=== PATIENT | female | born 1960 | race Two or more races ===

== ENCOUNTER 2017-06-17 00:58 | Emergency (ER) | payer MEDICAID ==
[~2017-06-17] VITALS: Ht 157.5 cm; Wt 65.8 kg
[2017-06-17 01:21] VITALS: BP 134/77
[2017-06-17] MEDS ORDERED: BACLOFEN 10 MG TAB PO ONE (03:00)
[2017-06-17] MEDS ORDERED: IBUPROFEN 600 MG TAB PO ONE (03:00)
== END 2017-06-17 03:15 | disposition home or self-care (01) ==
LOC: ER 01:03
DX: S00.83XA Contusion of other part of head, initial encounter (principal); W01.0XXA Fall on same level from slipping, tripping and stumbling without subsequent striking against object, initial encounter; Y93.89 Activity, other specified; Y92.89 Other specified places as the place of occurrence of the external cause; Y99.8 Other external cause status; Z88.6 Allergy status to analgesic agent
CPT/HCPCS: 70450

== ENCOUNTER 2021-04-26 21:37 | Inpatient (IN) | payer MEDICAID ==
[~2021-04-26] VITALS: Ht 157.5 cm; Wt 76.0 kg
[2021-04-27] MEDS ORDERED: ACETAMINOPHEN 325 MG TAB PO ONE
[2021-04-27 00:04] LABS: Basophils # (auto) 0 10 ^3/uL (0-0.2); Basophils % (auto) 0.5 % (0.0-2.0); Eosinophils # (auto) 0 10 ^3/uL (0-0.8); Eosinophils % (auto) 0.4 % (0.0-7.0); Hematocrit 30.2 % (36.0-46.0); Hemoglobin 9.5 g/dL (12.2-16.2); Lymphocytes # (auto) 1.3 10 ^3/uL (0.4-5.4); Mean Corpuscular Hemoglobin 29.7 pg (28.0-32.0); Mean Corpuscular Hgb Conc. 31.6 g/dL (32.0-36.0); Monocytes # (auto) 0.4 10 ^3/uL (0-1.3); Monocytes % (auto) 5.4 % (0.0-12.0); Neutrophils # (auto) 6.4 10 ^3/uL (1.6-8.6); Neutrophils % (auto) 77.7 % (37.0-80.0); Nucleated Red Blood Cells % 0.1 %; Red Blood Cells 3.21 10^6/uL (4.0-5.20); White Blood Cell 8.3 10^3/uL (4.4-10.8)
[2021-04-27 00:25] LABS: Albumin 2.2 g/dL (3.4-5.0); Anion Gap 7 (5-15); Blood Urea Nitrogen 25 mg/dL (7-18); Calcium 8.5 mg/dL (8.5-10.1); Carbon Dioxide 17 mmol/L (21-32); Chloride 117 mmol/L (98-107); GFR African American 59 mL/min; GFR Non-African American 49 mL/min; Glucose 100 mg/dL (74-106); Lipase 141 U/L (73-393); Potassium 4.7 mmol/L (3.5-5.1); Sodium 141 mmol/L (136-145)
[2021-04-27] MEDS ORDERED: FUROSEMIDE 40 MG/4 ML VIAL IV ONE (00:30)
[2021-04-27 00:31] LABS: Alanine Aminotransferase 19 U/L (13-56); Alkaline Phosphatase 139 U/L (45-117); Aspartate Aminotransferase 28 U/L (15-37); Bilirubin, Total 0.2 mg/dL (0.2-1.0); Total Protein 9.2 g/dL (6.4-8.2)
[2021-04-27] MEDS ORDERED: MORPHINE SULFATE INJECTION 2 MG/ML SYRG IV PRN ×2 (02:30)
[2021-04-27] MEDS ORDERED: hydrALAZINE HCL 20 MG/ML VL IV PRN (02:30)
[2021-04-27] MEDS ORDERED: NITROGLYCERIN 0.4 MG SL TAB SL PRN (02:30)
[2021-04-27] MEDS ORDERED: HYDROcodone-ACET 5/325MG TAB PO PRN (02:30)
[2021-04-27] MEDS ORDERED: ONDANSETRON HCL 4 MG/2 ML VIAL IV PRN (02:30)
[2021-04-27 03:49] LABS: Urine Bacteria NONE SEEN /hpf (None Seen); Urine Blood Negative /uL (Negative); Urine Hyaline Cast FEW /lpf (0 - 2); Urine Mucus FEW (None Seen); Urine Specific Gravity 1.013 (1.001-1.035); Urine WBC 32 /hpf (0 - 5)
[2021-04-27 05:12] LABS: Basophils # (auto) 0 10 ^3/uL (0-0.2); Eosinophils # (auto) 0 10 ^3/uL (0-0.8); Lymphocytes # (auto) 1.1 10 ^3/uL (0.4-5.4); Monocytes # (auto) 0.4 10 ^3/uL (0-1.3); Neutrophils % (auto) 72.8 % (37.0-80.0)
[2021-04-27 05:14] LABS: Basophils % (auto) 0.5 % (0.0-2.0); Eosinophils % (auto) 0.4 % (0.0-7.0); Hemoglobin 8.2 g/dL (12.2-16.2); Lymphocytes % (auto) 19.2 % (10.0-50.0); Mean Corpuscular Hemoglobin 30.1 pg (28.0-32.0); Mean Corpuscular Hgb Conc. 32.9 g/dL (32.0-36.0); Mean Corpuscular Volume 91.6 fL (80.0-100.0); Monocytes % (auto) 7.1 % (0.0-12.0); Neutrophils # (auto) 4.3 10 ^3/uL (1.6-8.6); Red Blood Cells 2.73 10^6/uL (4.0-5.20); Red Cell Distribution Width 17.3 % (11.8-14.3)
[2021-04-27 05:18] LABS: Partial Thromboplastin Time 25.2 sec (23.6-33.0)
[2021-04-27 05:23] LABS: BUN/Creatinine Ratio 20.8; Calcium 8.3 mg/dL (8.5-10.1); Potassium 4.2 mmol/L (3.5-5.1)
[2021-04-27] MEDS ORDERED: IOHEXOL 350 MG/ML 100ML IJ ONE (08:04)
[2021-04-27 09:00] VITALS: BP 182/75
[2021-04-27 09:13] VITALS: BP 182/75
[2021-04-27] MEDS ORDERED: LEVO137T3 PO (09:28)
[2021-04-27] MEDS ORDERED: HYDR50TA15 PO (09:28)
[2021-04-27] MEDS ORDERED: METOPROLOL TARTRATE 1MG/1ML-5ML VIAL IV PRN (09:45)
[2021-04-27] MEDS ORDERED: FUROSEMIDE 40 MG/4 ML VIAL IV SCH (10:00)
[2021-04-27] MEDS ORDERED: POTASSIUM CHL 10 Meq TABLET PO SCH (10:00)
[2021-04-27] MEDS: ENOXAPARIN SOD 40 MG/0.4 ML SYRINGE SC SCH (10:12)
[2021-04-27] MEDS: ACETAMINOPHEN 325 MG TAB PO PRN ×2 (10:22→20:01)
[2021-04-27 10:28] VITALS: BP 175/87
[2021-04-27] MEDS: CARVEDILOL 3.125 MG TAB PO SCH ×2 (12:44→21:47)
[2021-04-27 13:00] VITALS: BP 142/67
[2021-04-27] MEDS: hydrALAZINE HCL 25 MG TAB PO SCH ×2 (13:34→21:43)
[2021-04-27 17:00] VITALS: BP 139/67
[2021-04-27] MEDS: FUROSEMIDE 40 MG/4 ML VIAL IV SCH (21:59)
[2021-04-27 22:08] VITALS: BP 162/77
[2021-04-28 05:11] VITALS: BP 145/78
[2021-04-28] MEDS: FUROSEMIDE 40 MG/4 ML VIAL IV SCH ×2 (05:53→18:00)
[2021-04-28] MEDS: ACETAMINOPHEN 325 MG TAB PO PRN (05:54)
[2021-04-28] MEDS ORDERED: LEVOTHYROXINE SODIUM 112 MCG TAB PO SCH (07:00)
[2021-04-28] MEDS ORDERED: LEVOTHYROXINE SODIUM 25 MCG TAB PO SCH (07:00)
[2021-04-28 07:49] LABS: Calcium 8.2 mg/dL (8.5-10.1); Potassium 4.6 mmol/L (3.5-5.1)
[2021-04-28 07:51] LABS: BUN/Creatinine Ratio 22.4
[2021-04-28] MEDS: ENOXAPARIN SOD 40 MG/0.4 ML SYRINGE SC SCH (08:33)
[2021-04-28] MEDS: CARVEDILOL 3.125 MG TAB PO SCH (08:41)
[2021-04-28] MEDS: hydrALAZINE HCL 25 MG TAB PO SCH (08:42)
[2021-04-28 09:00] VITALS: BP 159/73
[2021-04-28] MEDS ORDERED: LOSARTAN POTASSIUM 25 MG TAB PO SCH (10:00)
[2021-04-28] MEDS ORDERED: POTASSIUM CHL 10 Meq TABLET PO SCH (10:00)
[2021-04-28] MEDS ORDERED: HYDR50TA15 PO (12:39)
[2021-04-28] MEDS ORDERED: FURO40TA4 PO (12:39)
[2021-04-28] MEDS ORDERED: CAR3125T PO (12:39)
[2021-04-28] MEDS ORDERED: SPIR25TA PO (12:39)
[2021-04-28 13:00] VITALS: BP 139/98
[2021-04-28 14:50] VITALS: BP 159/73
[2021-04-28 17:00] VITALS: BP 144/74
== END 2021-04-28 20:02 | disposition home or self-care (01) | DRG 194 ==
LOC: ER 21:37 → EDBD 21:37 → TELE 04-27 02:29 → TELE-WESTW 04-27 08:10
PROVIDERS: ADMIT Internal Medicine; ATTEND Internal Medicine
DX: I13.0 Hypertensive heart and chronic kidney disease with heart failure and stage 1 through stage 4 chronic kidney disease, or unspecified chronic kidney disease (principal); I27.20 Pulmonary hypertension, unspecified; I50.9 Heart failure, unspecified; N18.2 Chronic kidney disease, stage 2 (mild); Z20.822 Contact with and (suspected) exposure to COVID-19; Z80.3 Family history of malignant neoplasm of breast; Z82.49 Family history of ischemic heart disease and other diseases of the circulatory system; Z91.14 Patient's other noncompliance with medication regimen; Z88.5 Allergy status to narcotic agent; I50.33 Acute on chronic diastolic (congestive) heart failure
CPT/HCPCS: 36415; 71045; 71275; 80048; 80053; 81001; 83605; 83690; 83880; 84484; 85025; 85379; 85610; 85730; 87426; 93005; 93306; 96374; 96375; G0378

== ENCOUNTER 2021-11-09 19:28 | Inpatient (IN) | payer MEDICAID ==
[~2021-11-09] VITALS: Ht 157.5 cm; Wt 57.9 kg
[~2021-11-09 19:28] MED LIST: CAR3125T PO; FURO40TA4 PO; HYDR50TA15 PO; LEVO137T3 PO; SPIR25TA PO
[2021-11-09] MEDS ORDERED: FUROSEMIDE 100 MG/10ML VIAL IV ONE (20:00)
[2021-11-09] MEDS ORDERED: LABETALOL HCL 5 MG/ML 4ML SYRINGE IV ONE (20:00)
[2021-11-09 20:06] LABS: Basophils # (auto) 0.2 10 ^3/uL (0-0.2); Eosinophils # (auto) 0 10 ^3/uL (0-0.8); Hematocrit 18.8 % (36.0-46.0); Monocytes # (auto) 0.2 10 ^3/uL (0-1.3); Neutrophils # (auto) 3.2 10 ^3/uL (1.6-8.6)
[2021-11-09 20:08] LABS: Lymphocytes # (auto) 0.9 10 ^3/uL (0.4-5.4); Lymphocytes % (auto) 19.6 % (10.0-50.0); Mean Corpuscular Hemoglobin 30.3 pg (28.0-32.0); Mean Corpuscular Hgb Conc. 32.5 g/dL (32.0-36.0); Mean Corpuscular Volume 93.2 fL (80.0-100.0); Monocytes % (auto) 3.6 % (0.0-12.0); Neutrophils % (auto) 71.8 % (37.0-80.0); Red Blood Cells 2.02 10^6/uL (4.0-5.20); Red Cell Distribution Width 17.3 % (11.8-14.3); White Blood Cell 4.4 10^3/uL (4.4-10.8)
[2021-11-09 20:16] LABS: Hemoglobin 6.1 g/dL (12.2-16.2)
[2021-11-09 20:24] LABS: Albumin 1.9 g/dL (3.4-5.0); BUN/Creatinine Ratio 20.8; Calcium 7.9 mg/dL (8.5-10.1); Magnesium 2.4 mg/dL (1.6-2.6); Potassium 5.5 mmol/L (3.5-5.1)
[2021-11-09 20:29] LABS: Bilirubin, Total 0.2 mg/dL (0.2-1.0); Total Protein 7.3 g/dL (6.4-8.2)
[2021-11-09 20:31] LABS: Partial Thromboplastin Time 27.1 sec (23.6-33.0)
[2021-11-09 21:34] LABS: Urine Bacteria FEW /hpf (None Seen); Urine Blood Negative /uL (Negative); Urine Hyaline Cast FEW /lpf (0 - 2); Urine Specific Gravity 1.012 (1.001-1.035); Urine WBC 4 /hpf (0 - 5)
[2021-11-09] MEDS ORDERED: ONDANSETRON HCL 4 MG/2 ML VIAL IV PRN (21:45)
[2021-11-09] MEDS ORDERED: DOCUSATE SOD 100 MG CAP PO PRN (21:45)
[2021-11-09] MEDS ORDERED: NITROGLYCERIN 0.4 MG SL TAB SL PRN (21:45)
[2021-11-09 22:58] VITALS: BP 182/82
[2021-11-09 23:13] VITALS: BP 187/85
[2021-11-10] VITALS (15 sets, daily range): BP systolic 134–196; BP diastolic 70–98
[2021-11-10] MEDS: LABETALOL HCL 5 MG/ML 4ML SYRINGE IV PRN ×3 (01:37→16:05)
[2021-11-10] MEDS ORDERED: hydrALAZINE HCL 20 MG/ML VL IV ONE (05:30)
[2021-11-10] MEDS: ACETAMINOPHEN 325 MG TAB PO PRN (05:58)
[2021-11-10] MEDS: FUROSEMIDE 20 MG/2 ML VIAL IV SCH ×2 (05:59→18:44)
[2021-11-10 07:37] LABS: Basophils # (auto) 0 10 ^3/uL (0-0.2); Eosinophils # (auto) 0 10 ^3/uL (0-0.8); Lymphocytes # (auto) 0.8 10 ^3/uL (0.4-5.4); Monocytes # (auto) 0.2 10 ^3/uL (0-1.3); White Blood Cell 4.9 10^3/uL (4.4-10.8)
[2021-11-10 07:41] LABS: Basophils % (auto) 0.8 % (0.0-2.0); Hematocrit 22.5 % (36.0-46.0); Hemoglobin 7.5 g/dL (12.2-16.2); Mean Corpuscular Hemoglobin 30.3 pg (28.0-32.0); Mean Corpuscular Hgb Conc. 33.4 g/dL (32.0-36.0); Mean Corpuscular Volume 90.6 fL (80.0-100.0); Monocytes % (auto) 4.8 % (0.0-12.0); Neutrophils # (auto) 3.8 10 ^3/uL (1.6-8.6); Neutrophils % (auto) 77.4 % (37.0-80.0); Nucleated Red Blood Cells % 0.2 %; Red Blood Cells 2.48 10^6/uL (4.0-5.20); Red Cell Distribution Width 16.9 % (11.8-14.3)
[2021-11-10 07:56] LABS: BUN/Creatinine Ratio 22.1; Potassium 5.5 mmol/L (3.5-5.1)
[2021-11-10 07:57] LABS: % Iron Saturation 20.5 % (15-50)
[2021-11-10] MEDS ORDERED: PANTOPRAZOLE 40 MG/10 ML VIAL INJ IV SCH (10:00)
[2021-11-10 19:35] LABS: Basophils # (auto) 0 10 ^3/uL (0-0.2); Basophils % (auto) 0.4 % (0.0-2.0); Eosinophils # (auto) 0 10 ^3/uL (0-0.8); Eosinophils % (auto) 0.8 % (0.0-7.0); Hematocrit 26.3 % (36.0-46.0); Hemoglobin 8.9 g/dL (12.2-16.2); Lymphocytes # (auto) 0.9 10 ^3/uL (0.4-5.4); Lymphocytes % (auto) 17.3 % (10.0-50.0); Mean Corpuscular Hemoglobin 30.9 pg (28.0-32.0); Mean Corpuscular Volume 90.9 fL (80.0-100.0); Monocytes # (auto) 0.3 10 ^3/uL (0-1.3); Monocytes % (auto) 5.6 % (0.0-12.0); Neutrophils # (auto) 4.1 10 ^3/uL (1.6-8.6); Neutrophils % (auto) 75.9 % (37.0-80.0); Nucleated Red Blood Cells % 0.2 %; Red Blood Cells 2.89 10^6/uL (4.0-5.20); Red Cell Distribution Width 16.5 % (11.8-14.3); White Blood Cell 5.4 10^3/uL (4.4-10.8)
[2021-11-10 19:36] LABS: % Iron Saturation 24.2 % (15-50)
[2021-11-10] MEDS: PANTOPRAZOLE 40 MG/10 ML VIAL INJ IV SCH (21:47)
[2021-11-10] MEDS: CARVEDILOL 3.125 MG TAB PO SCH (22:00)
[2021-11-11] MEDS: hydrALAZINE HCL 20 MG/ML VL IV PRN ×2 (00:14→15:20)
[2021-11-11] MEDS: ACETAMINOPHEN 325 MG TAB PO PRN ×2 (00:33→11:36)
[2021-11-11 05:00] VITALS: BP 142/64
[2021-11-11] MEDS: FUROSEMIDE 20 MG/2 ML VIAL IV SCH ×2 (05:33→19:58)
[2021-11-11 06:02] LABS: Basophils # (auto) 0 10 ^3/uL (0-0.2); Basophils % (auto) 0.6 % (0.0-2.0); Eosinophils # (auto) 0.1 10 ^3/uL (0-0.8); Eosinophils % (auto) 1.8 % (0.0-7.0); Hematocrit 25.3 % (36.0-46.0); Hemoglobin 8.5 g/dL (12.2-16.2); Lymphocytes % (auto) 23.4 % (10.0-50.0); Mean Corpuscular Hgb Conc. 33.8 g/dL (32.0-36.0); Monocytes # (auto) 0.2 10 ^3/uL (0-1.3); Monocytes % (auto) 5.8 % (0.0-12.0); Neutrophils # (auto) 2.9 10 ^3/uL (1.6-8.6); Neutrophils % (auto) 68.4 % (37.0-80.0); Nucleated Red Blood Cells % 0.1 %; Red Blood Cells 2.75 10^6/uL (4.0-5.20); Red Cell Distribution Width 16.5 % (11.8-14.3); White Blood Cell 4.2 10^3/uL (4.4-10.8)
[2021-11-11 06:26] LABS: Chloride 116 mmol/L (98-107); Potassium 5.3 mmol/L (3.5-5.1); Sodium 143 mmol/L (136-145)
[2021-11-11 06:39] LABS: Alanine Aminotransferase 10 U/L (13-56); Albumin 1.5 g/dL (3.4-5.0); Alkaline Phosphatase 64 U/L (45-117); Anion Gap 5 (5-15); Aspartate Aminotransferase 17 U/L (15-37); BUN/Creatinine Ratio 20.6; Bilirubin, Direct < 0.1 mg/dL (0-0.2); Bilirubin, Total 0.2 mg/dL (0.2-1.0); Blood Urea Nitrogen 59 mg/dL (7-18); CRP High Sensitivity 0.87 mg/dL (< 0.3); Calcium 7.5 mg/dL (8.5-10.1); Carbon Dioxide 22 mmol/L (21-32); GFR African American 22 mL/min; GFR Non-African American 18 mL/min; Glucose 76 mg/dL (74-106); Phosphorus 5.8 mg/dL (2.5-4.90); Pre Albumin 17.2 mg/dL (20.0-40.0); Total Protein 6.2 g/dL (6.4-8.2)
[2021-11-11 07:16] LABS: Urine Bacteria FEW /hpf (None Seen); Urine Blood TRACE /uL (Negative); Urine Hyaline Cast FEW /lpf (0 - 2); Urine Specific Gravity 1.015 (1.001-1.035); Urine WBC 16 /hpf (0 - 5)
[2021-11-11 07:19] LABS: Protein, Urine 487.8 mg/dL (0.0-11.9)
[2021-11-11 08:00] VITALS: BP 148/77
[2021-11-11 09:21] VITALS: BP 175/67
[2021-11-11] MEDS: PANTOPRAZOLE 40 MG/10 ML VIAL INJ IV SCH ×2 (11:12→22:18)
[2021-11-11] MEDS: CARVEDILOL 3.125 MG TAB PO SCH ×2 (11:12→22:21)
[2021-11-11] MEDS: SODIUM FERR GLUC 62.5MG/5ML 125 MG in SODIUM CHL 0.9% 100 ML IV SCH (12:06)
[2021-11-11 12:34] VITALS: BP 175/73
[2021-11-11 16:52] VITALS: BP 167/75
[2021-11-11] MEDS ORDERED: hydrALAZINE HCL 20 MG/ML VL IV PRN (20:45)
[2021-11-11 22:00] VITALS: BP 202/89
[2021-11-11] MEDS: amLODIPine BESYLATE 5 MG TAB PO SCH (22:20)
[2021-11-12 05:00] VITALS: BP 161/71
[2021-11-12] MEDS: hydrALAZINE HCL 20 MG/ML VL IV PRN (05:40)
[2021-11-12] MEDS: FUROSEMIDE 20 MG/2 ML VIAL IV SCH ×2 (05:40→17:45)
[2021-11-12 06:17] LABS: Albumin 1.5 g/dL (3.4-5.0)
[2021-11-12 06:22] LABS: Alanine Aminotransferase 11 U/L (13-56); Alkaline Phosphatase 65 U/L (45-117); Aspartate Aminotransferase 20 U/L (15-37); Bilirubin, Direct < 0.1 mg/dL (0-0.2); Bilirubin, Total 0.3 mg/dL (0.2-1.0); Phosphorus 4.9 mg/dL (2.5-4.90); Total Protein 6.4 g/dL (6.4-8.2)
[2021-11-12 09:00] VITALS: BP 159/74
[2021-11-12] MEDS: PANTOPRAZOLE 40 MG/10 ML VIAL INJ IV SCH ×2 (11:56→22:13)
[2021-11-12] MEDS: CARVEDILOL 3.125 MG TAB PO SCH ×2 (11:56→22:13)
[2021-11-12] MEDS: amLODIPine BESYLATE 5 MG TAB PO SCH ×2 (11:57→22:14)
[2021-11-12] MEDS: SODIUM FERR GLUC 62.5MG/5ML 125 MG in SODIUM CHL 0.9% 100 ML IV SCH (12:03)
[2021-11-12 12:58] VITALS: BP 144/63
[2021-11-12 13:31] LABS: Folate (Folic Acid) 2.83 ng/mL (5.38-24)
[2021-11-12 13:40] LABS: Free T4 (Free Thyroxine) 1.11 ng/dL (0.89-1.76)
[2021-11-12] MEDS ORDERED: hydrALAZINE HCL 25 MG TAB PO PRN (14:00)
[2021-11-12] MEDS ORDERED: ERGOCALCIFEROL 50,000 UNIT(1.25MG) CAP PO SCH (14:15)
[2021-11-12 15:42] LABS: Basophils # (auto) 0 10 ^3/uL (0-0.2); Basophils % (auto) 0.6 % (0.0-2.0); Eosinophils # (auto) 0.1 10 ^3/uL (0-0.8); Eosinophils % (auto) 2.4 % (0.0-7.0); Hematocrit 29.7 % (36.0-46.0); Hemoglobin 9.7 g/dL (12.2-16.2); Lymphocytes # (auto) 0.8 10 ^3/uL (0.4-5.4); Lymphocytes % (auto) 16.2 % (10.0-50.0); Mean Corpuscular Hemoglobin 30.3 pg (28.0-32.0); Mean Corpuscular Hgb Conc. 32.6 g/dL (32.0-36.0); Monocytes # (auto) 0.3 10 ^3/uL (0-1.3); Monocytes % (auto) 7.1 % (0.0-12.0); Neutrophils # (auto) 3.4 10 ^3/uL (1.6-8.6); Neutrophils % (auto) 73.7 % (37.0-80.0); Nucleated Red Blood Cells % 0.2 %; Red Blood Cells 3.19 10^6/uL (4.0-5.20); Red Cell Distribution Width 16.4 % (11.8-14.3); White Blood Cell 4.7 10^3/uL (4.4-10.8)
[2021-11-12 15:47] LABS: Partial Thromboplastin Time 31.5 sec (23.6-33.0)
[2021-11-12 16:47] VITALS: BP 175/79
[2021-11-12] MEDS ORDERED: hydrALAZINE HCL 25 MG TAB PO SCH (17:15)
[2021-11-12 21:55] VITALS: BP 165/76
[2021-11-13] VITALS (35 sets, daily range): BP systolic 128–185; BP diastolic 65–89
[2021-11-13] MEDS: hydrALAZINE HCL 25 MG TAB PO SCH ×5 (00:05→23:52)
[2021-11-13] MEDS: FUROSEMIDE 20 MG/2 ML VIAL IV SCH ×2 (06:10→18:39)
[2021-11-13] MEDS: hydrALAZINE HCL 20 MG/ML VL IV PRN (06:10)
[2021-11-13 06:23] LABS: Calcium 7.5 mg/dL (8.5-10.1); Potassium 5.2 mmol/L (3.5-5.1)
[2021-11-13 06:24] LABS: INR 1.02 (0.9-1.15); Partial Thromboplastin Time 29.6 sec (23.6-33.0)
[2021-11-13 06:34] LABS: BUN/Creatinine Ratio 19.9
[2021-11-13 08:06] LABS: Immunoglobulin G, Serum 2420 mg/dL (586-1602)
[2021-11-13] MEDS: PANTOPRAZOLE 40 MG/10 ML VIAL INJ IV SCH ×2 (10:00→21:46)
[2021-11-13] MEDS: CARVEDILOL 3.125 MG TAB PO SCH ×2 (10:03→21:46)
[2021-11-13] MEDS: amLODIPine BESYLATE 5 MG TAB PO SCH ×2 (10:04→21:45)
[2021-11-13] MEDS ORDERED: GELATIN 1 SPONGE SIZE 100 TOP ONE (10:33)
[2021-11-13] MEDS ORDERED: fentaNYL CITRATE 100 MCG/2 ML VL ONE (10:45)
[2021-11-13] MEDS ORDERED: MIDAZOLAM HCL 2MG/2ML 2ml VIAL (1mg/ml) ONE (10:45)
[2021-11-13] MEDS ORDERED: hydrALAZINE HCL 20 MG/ML VL IV ONE (11:11)
[2021-11-13] MEDS ORDERED: NALOXONE HCL 0.4 MG/ML VIAL ONE (11:36)
[2021-11-13] MEDS ORDERED: FLUMAZENIL 0.1 MG/ML INJ 10ML MDV IV ONE (13:06)
[2021-11-13] MEDS: SODIUM ZIRCONIUM CYCL 10 GM PAK PO SCH ×2 (15:59→21:45)
[2021-11-13] MEDS: SODIUM FERR GLUC 62.5MG/5ML 125 MG in SODIUM CHL 0.9% 100 ML IV SCH (16:00)
[2021-11-13] MEDS: ACETAMINOPHEN 325 MG TAB PO PRN (20:00)
[2021-11-14] VITALS (17 sets, daily range): BP systolic 120–173; BP diastolic 64–89
[2021-11-14 05:57] LABS: BUN/Creatinine Ratio 20.7; Calcium 7.8 mg/dL (8.5-10.1); Potassium 4.9 mmol/L (3.5-5.1)
[2021-11-14] MEDS: FUROSEMIDE 20 MG/2 ML VIAL IV SCH ×2 (06:53→18:00)
[2021-11-14] MEDS: hydrALAZINE HCL 25 MG TAB PO SCH ×4 (06:53→23:18)
[2021-11-14] MEDS: SODIUM ZIRCONIUM CYCL 10 GM PAK PO SCH ×3 (06:53→21:12)
[2021-11-14] MEDS: PANTOPRAZOLE 40 MG/10 ML VIAL INJ IV SCH ×2 (09:07→21:07)
[2021-11-14] MEDS: amLODIPine BESYLATE 5 MG TAB PO SCH ×2 (09:08→21:11)
[2021-11-14] MEDS: CARVEDILOL 3.125 MG TAB PO SCH ×2 (09:09→21:12)
[2021-11-14] MEDS: SODIUM FERR GLUC 62.5MG/5ML 125 MG in SODIUM CHL 0.9% 100 ML IV SCH (11:52)
[2021-11-14] MEDS ORDERED: MORPHINE SULFATE INJECTION 2 MG/ML SYRG IV ONE (18:00)
[2021-11-14] MEDS ORDERED: TEMAZEPAM 15 MG CAP PO ONE (22:00)
[2021-11-15] MEDS: ACETAMINOPHEN 325 MG TAB PO PRN ×3 (04:30→18:30)
[2021-11-15 05:00] VITALS: BP 162/68
[2021-11-15] MEDS: FUROSEMIDE 20 MG/2 ML VIAL IV SCH ×2 (05:23→18:50)
[2021-11-15] MEDS: SODIUM ZIRCONIUM CYCL 10 GM PAK PO SCH (05:23)
[2021-11-15] MEDS: hydrALAZINE HCL 25 MG TAB PO SCH ×3 (05:23→18:50)
[2021-11-15 05:28] LABS: Basophils # (auto) 0 10 ^3/uL (0-0.2); Basophils % (auto) 0.9 % (0.0-2.0); Eosinophils # (auto) 0.1 10 ^3/uL (0-0.8); Eosinophils % (auto) 1.6 % (0.0-7.0); Hematocrit 28.2 % (36.0-46.0); Hemoglobin 9.7 g/dL (12.2-16.2); Lymphocytes # (auto) 0.9 10 ^3/uL (0.4-5.4); Lymphocytes % (auto) 20.4 % (10.0-50.0); Mean Corpuscular Hemoglobin 31.4 pg (28.0-32.0); Mean Corpuscular Hgb Conc. 34.3 g/dL (32.0-36.0); Mean Corpuscular Volume 91.7 fL (80.0-100.0); Monocytes # (auto) 0.3 10 ^3/uL (0-1.3); Monocytes % (auto) 6.5 % (0.0-12.0); Neutrophils # (auto) 3.2 10 ^3/uL (1.6-8.6); Neutrophils % (auto) 70.6 % (37.0-80.0); Nucleated Red Blood Cells % 0.1 %; Red Blood Cells 3.07 10^6/uL (4.0-5.20); White Blood Cell 4.6 10^3/uL (4.4-10.8)
[2021-11-15 05:39] LABS: BUN/Creatinine Ratio 19.2; Calcium 7.7 mg/dL (8.5-10.1); Potassium 4.3 mmol/L (3.5-5.1)
[2021-11-15] MEDS: PANTOPRAZOLE 40 MG/10 ML VIAL INJ IV SCH (09:02)
[2021-11-15] MEDS: CARVEDILOL 3.125 MG TAB PO SCH (09:03)
[2021-11-15] MEDS: amLODIPine BESYLATE 5 MG TAB PO SCH (09:10)
[2021-11-15 13:00] VITALS: BP 122/53
[2021-11-15] MEDS: SODIUM FERR GLUC 62.5MG/5ML 125 MG in SODIUM CHL 0.9% 100 ML IV SCH (15:15)
[2021-11-15] MEDS ORDERED: FERR-7 PO (17:07)
[2021-11-15 17:09] VITALS: BP 136/73
[2021-11-15 18:06] VITALS: BP 128/67
== END 2021-11-15 19:40 | disposition home or self-care (01) | DRG 194 ==
LOC: ER 19:30 → TELE 21:44 → TELE-WESTW 23:34 → DOU IN ICU 11-13 15:16 → TELE-CENTR 11-14 15:52
PROVIDERS: ADMIT Hospitalist; ATTEND Hospitalist
PROC: 30233N1 Transfusion of Nonautologous Red Blood Cells into Peripheral Vein, Percutaneous Approach (ICD-10-PCS; 2021-11-09)
PROC: 0TB03ZX Excision of Right Kidney, Percutaneous Approach, Diagnostic (ICD-10-PCS; principal; 2021-11-13)
DX: I13.0 Hypertensive heart and chronic kidney disease with heart failure and stage 1 through stage 4 chronic kidney disease, or unspecified chronic kidney disease (principal); N17.9 Acute kidney failure, unspecified; E44.0 Moderate protein-calorie malnutrition; N04.9 Nephrotic syndrome with unspecified morphologic changes; I27.20 Pulmonary hypertension, unspecified; I50.43 Acute on chronic combined systolic (congestive) and diastolic (congestive) heart failure; D64.9 Anemia, unspecified; Z20.822 Contact with and (suspected) exposure to COVID-19; N18.32 Chronic kidney disease, stage 3b; M06.9 Rheumatoid arthritis, unspecified; Z80.3 Family history of malignant neoplasm of breast; Z82.0 Family history of epilepsy and other diseases of the nervous system; Z82.49 Family history of ischemic heart disease and other diseases of the circulatory system; Z68.23 Body mass index [BMI] 23.0-23.9, adult; Z88.5 Allergy status to narcotic agent; Z86.16 Personal history of COVID-19; Z86.711 Personal history of pulmonary embolism; Z79.899 Other long term (current) drug therapy
CPT/HCPCS: 36415; 36430; 36600; 70450; 71045; 76775; 76942; 80048; 80053; 80076; 81001; 82040; 82306; 82570; 82607; 82668; 82746; 82784; 82805; 83010; 83036; 83520; 83540; 83550; 83615; 83735; 83880; 84100; 84156; 84300; 84439; 84443; 84484; 84550; 85025; 85045; 85610; 85652; 85730; 86141; 86160; 86256; 86334; 86850; 86880; 86900; 86901; 86920; 93005; 93306; 96374; 96375; 97163; 99291; C9113; G0378; J2250; J3490

== ENCOUNTER 2021-11-22 15:24 | Inpatient (IN) | payer MEDICAID ==
[~2021-11-22] VITALS: Ht 157.5 cm; Wt 64.5 kg
[~2021-11-22 15:24] MED LIST changes: +FERR-7 PO; -SPIR25TA PO
[2021-11-22 17:07] LABS: Basophils # (auto) 0 10 ^3/uL (0-0.2); Basophils % (auto) 0.6 % (0.0-2.0); Eosinophils # (auto) 0 10 ^3/uL (0-0.8); Eosinophils % (auto) 0.8 % (0.0-7.0); Hematocrit 31.9 % (36.0-46.0); Hemoglobin 10.6 g/dL (12.2-16.2); Lymphocytes # (auto) 0.7 10 ^3/uL (0.4-5.4); Lymphocytes % (auto) 15.7 % (10.0-50.0); Mean Corpuscular Hemoglobin 30.5 pg (28.0-32.0); Mean Corpuscular Hgb Conc. 33.1 g/dL (32.0-36.0); Mean Corpuscular Volume 92.2 fL (80.0-100.0); Monocytes # (auto) 0.3 10 ^3/uL (0-1.3); Monocytes % (auto) 6.7 % (0.0-12.0); Neutrophils # (auto) 3.6 10 ^3/uL (1.6-8.6); Neutrophils % (auto) 76.2 % (37.0-80.0); Nucleated Red Blood Cells % 0.1 %; Red Blood Cells 3.46 10^6/uL (4.0-5.20); Red Cell Distribution Width 16.8 % (11.8-14.3); White Blood Cell 4.7 10^3/uL (4.4-10.8)
[2021-11-22 17:26] LABS: Albumin 1.7 g/dL (3.4-5.0); BUN/Creatinine Ratio 23.6; Calcium 7.8 mg/dL (8.5-10.1); Potassium 4.6 mmol/L (3.5-5.1)
[2021-11-22 17:29] LABS: Bilirubin, Total 0.2 mg/dL (0.2-1.0); Total Protein 7.1 g/dL (6.4-8.2)
[2021-11-22] MEDS ORDERED: ONDANSETRON HCL 4 MG/2 ML VIAL IV ONE (19:45)
[2021-11-22] MEDS ORDERED: SODIUM CHLORIDE 0.9% 1,000 ML IV ONE (19:45)
[2021-11-22] MEDS ORDERED: LABETALOL HCL 5 MG/ML 4ML SYRINGE IV ONE (19:45)
[2021-11-22] MEDS ORDERED: MORPHINE SULFATE 4 MG/ML SYR/VIAL IV ONE (19:45)
[2021-11-23] MEDS ORDERED: SODIUM CHLORIDE 0.9% 1,000 ML IV SCH ×2 (01:30→16:15)
[2021-11-23] MEDS ORDERED: DEXTROSE (50%) 50ML SYRG IV PRN (01:30)
[2021-11-23] MEDS ORDERED: NITROGLYCERIN 0.4 MG SL TAB SL PRN (01:30)
[2021-11-23 03:55] VITALS: BP 187/98
[2021-11-23 04:59] LABS: Urine Bacteria NONE SEEN /hpf (None Seen); Urine Blood Negative /uL (Negative); Urine Mucus FEW (None Seen); Urine Specific Gravity 1.019 (1.001-1.035); Urine WBC 220 /hpf (0 - 5)
[2021-11-23 05:15] VITALS: BP 187/98
[2021-11-23] MEDS: hydrALAZINE HCL 20 MG/ML VL IV PRN ×2 (05:51→18:24)
[2021-11-23] MEDS: InsuLIN REG 1unit/0.01ml Soln (100units/ml) SC SCH ×4 (07:00→23:20)
[2021-11-23] MEDS: ACCU-CHEK COMFORT CURVE STRIP VI SCH ×4 (07:10→23:20)
[2021-11-23 07:35] LABS: Basophils # (auto) 0 10 ^3/uL (0-0.2); Basophils % (auto) 0.6 % (0.0-2.0); Eosinophils # (auto) 0 10 ^3/uL (0-0.8); Eosinophils % (auto) 0.5 % (0.0-7.0); Hematocrit 33.4 % (36.0-46.0); Lymphocytes # (auto) 0.8 10 ^3/uL (0.4-5.4); Lymphocytes % (auto) 15.7 % (10.0-50.0); Mean Corpuscular Hemoglobin 30.8 pg (28.0-32.0); Mean Corpuscular Hgb Conc. 33.1 g/dL (32.0-36.0); Mean Corpuscular Volume 92.9 fL (80.0-100.0); Monocytes # (auto) 0.3 10 ^3/uL (0-1.3); Monocytes % (auto) 6.4 % (0.0-12.0); Neutrophils # (auto) 3.9 10 ^3/uL (1.6-8.6); Neutrophils % (auto) 76.8 % (37.0-80.0); Nucleated Red Blood Cells % 0.1 %; Red Blood Cells 3.59 10^6/uL (4.0-5.20); Red Cell Distribution Width 16.8 % (11.8-14.3)
[2021-11-23 09:00] VITALS: BP 162/87
[2021-11-23] MEDS: HEPARIN SODIUM (PORCINE) 5000 UNITS/ML 1ML VIAL SC SCH ×2 (10:30→23:17)
[2021-11-23 13:00] VITALS: BP 160/76
[2021-11-23] MEDS ORDERED: methylPREDNISolone SOD SUCC 1,000 MG in SODIUM CHL 0.9% 250 ML IV ONE (13:15)
[2021-11-23] MEDS: ACETAMINOPHEN 325 MG TAB PO PRN ×3 (13:59→23:18)
[2021-11-23] MEDS ORDERED: PANTOPRAZOLE 40 MG/10 ML VIAL INJ IV SCH (16:15)
[2021-11-23 17:00] VITALS: BP 161/95
[2021-11-23] MEDS: cefTRIAXone 1GM/50ML D5W 50 ML IV SCH (17:45)
[2021-11-23 22:00] VITALS: BP 140/70
[2021-11-23] MEDS: PANTOPRAZOLE 40 MG/10 ML VIAL INJ IV SCH (23:16)
[2021-11-23] MEDS: CARVEDILOL 3.125 MG TAB PO SCH (23:18)
[2021-11-23] MEDS: hydrALAZINE HCL 25 MG TAB PO SCH (23:19)
[2021-11-24 05:30] VITALS: BP 149/71
[2021-11-24 05:46] LABS: Basophils # (auto) 0 10 ^3/uL (0-0.2); Basophils % (auto) 0.3 % (0.0-2.0); Eosinophils # (auto) 0 10 ^3/uL (0-0.8); Eosinophils % (auto) 0.1 % (0.0-7.0); Hematocrit 29.3 % (36.0-46.0); Hemoglobin 9.7 g/dL (12.2-16.2); Lymphocytes # (auto) 0.6 10 ^3/uL (0.4-5.4); Lymphocytes % (auto) 17.4 % (10.0-50.0); Mean Corpuscular Hemoglobin 30.8 pg (28.0-32.0); Mean Corpuscular Hgb Conc. 33.1 g/dL (32.0-36.0); Mean Corpuscular Volume 93.1 fL (80.0-100.0); Monocytes # (auto) 0.1 10 ^3/uL (0-1.3); Monocytes % (auto) 2.1 % (0.0-12.0); Neutrophils # (auto) 2.6 10 ^3/uL (1.6-8.6); Neutrophils % (auto) 80.1 % (37.0-80.0); Nucleated Red Blood Cells % 0.2 %; Red Blood Cells 3.15 10^6/uL (4.0-5.20); Red Cell Distribution Width 16.6 % (11.8-14.3); White Blood Cell 3.3 10^3/uL (4.4-10.8)
[2021-11-24 06:06] LABS: Calcium 7.7 mg/dL (8.5-10.1)
[2021-11-24] MEDS ORDERED: InsuLIN REG 1unit/0.01ml Soln (100units/ml) IV ONE ×3 (06:30→17:30)
[2021-11-24] MEDS ORDERED: CALCIUM GLUC 1,000mg/50ml-NS 50 ML IV ONE ×2 (06:30→17:15)
[2021-11-24] MEDS ORDERED: ALBUTEROL SULF 2.5 MG/0.5ML(0.5%) NEB SOLN NEB ONE ×2 (06:30→17:15)
[2021-11-24] MEDS ORDERED: SODIUM BICARBONATE 8.4% INJ 50ML SYRINGE IV ONE (06:30)
[2021-11-24] MEDS ORDERED: DEXTROSE (50%) 50ML SYRG IV ONE ×3 (06:30→17:30)
[2021-11-24] MEDS ORDERED: SODIUM CHLORIDE 0.9 % NEB SOLN 3ML NEB ONE (06:31)
[2021-11-24] MEDS ORDERED: ALBUTEROL SULF 2.5 MG/0.5ML(0.5%) NEB SOLN ONE (06:31)
[2021-11-24] MEDS: ACCU-CHEK COMFORT CURVE STRIP VI SCH ×4 (06:42→22:40)
[2021-11-24] MEDS: InsuLIN REG 1unit/0.01ml Soln (100units/ml) SC SCH ×4 (06:42→22:53)
[2021-11-24] MEDS: LEVOTHYROXINE SODIUM 112 MCG TAB PO SCH (06:52)
[2021-11-24] MEDS: LEVOTHYROXINE SODIUM 25 MCG TAB PO SCH (06:53)
[2021-11-24] MEDS: hydrALAZINE HCL 25 MG TAB PO SCH ×3 (06:54→22:39)
[2021-11-24] MEDS ORDERED: SODIUM ZIRCONIUM CYCL 10 GM PAK PO ONE (08:30)
[2021-11-24 09:00] VITALS: BP 160/84
[2021-11-24] MEDS: PANTOPRAZOLE 40 MG/10 ML VIAL INJ IV SCH ×2 (09:11→22:39)
[2021-11-24] MEDS: CARVEDILOL 3.125 MG TAB PO SCH ×2 (09:11→22:39)
[2021-11-24] MEDS: cefTRIAXone 1GM/50ML D5W 50 ML IV SCH (09:11)
[2021-11-24] MEDS: ACETAMINOPHEN 325 MG TAB PO PRN (09:12)
[2021-11-24] MEDS: HEPARIN SODIUM (PORCINE) 5000 UNITS/ML 1ML VIAL SC SCH ×2 (09:12→22:41)
[2021-11-24] MEDS: hydrALAZINE HCL 20 MG/ML VL IV PRN (09:12)
[2021-11-24] MEDS ORDERED: methylPREDNISolone SOD SUCC 1,000 MG in SODIUM CHL 0.9% 250 ML IV ONE (09:45)
[2021-11-24 11:45] LABS: BUN/Creatinine Ratio 18.8; Calcium 8.1 mg/dL (8.5-10.1)
[2021-11-24 12:26] LABS: Potassium 6.1 mmol/L (3.5-5.1)
[2021-11-24 13:00] VITALS: BP 155/76
[2021-11-24 17:00] VITALS: BP 131/63
[2021-11-24 19:13] LABS: Potassium 5.5 mmol/L (3.5-5.1)
[2021-11-24 19:15] LABS: BUN/Creatinine Ratio 18.2
[2021-11-24 22:00] VITALS: BP 188/79
[2021-11-25 04:49] VITALS: BP 167/77
[2021-11-25 06:13] LABS: Calcium 7.7 mg/dL (8.5-10.1)
[2021-11-25 06:15] LABS: BUN/Creatinine Ratio 19.4
[2021-11-25] MEDS: ACCU-CHEK COMFORT CURVE STRIP VI SCH ×4 (06:16→21:06)
[2021-11-25] MEDS: LEVOTHYROXINE SODIUM 25 MCG TAB PO SCH (06:16)
[2021-11-25] MEDS: LEVOTHYROXINE SODIUM 112 MCG TAB PO SCH (06:16)
[2021-11-25] MEDS: hydrALAZINE HCL 25 MG TAB PO SCH ×3 (06:16→22:28)
[2021-11-25 06:28] LABS: Potassium 5.9 mmol/L (3.5-5.1)
[2021-11-25] MEDS: InsuLIN REG 1unit/0.01ml Soln (100units/ml) SC SCH ×4 (06:30→21:12)
[2021-11-25] MEDS ORDERED: ALBUTEROL SULF 2.5 MG/0.5ML(0.5%) NEB SOLN NEB ONE (07:00)
[2021-11-25] MEDS ORDERED: CALCIUM GLUC 1,000mg/50ml-NS 50 ML IV ONE (07:00)
[2021-11-25] MEDS ORDERED: DEXTROSE (50%) 50ML SYRG IV ONE (07:00)
[2021-11-25] MEDS ORDERED: SODIUM BICARBONATE 8.4% INJ 50ML SYRINGE IV ONE (07:00)
[2021-11-25] MEDS ORDERED: InsuLIN REG 1unit/0.01ml Soln (100units/ml) IV ONE (07:00)
[2021-11-25] MEDS ORDERED: methylPREDNISolone SOD SUCC 1,000 MG in SODIUM CHL 0.9% 250 ML IV ONE ×2 (07:45→08:45)
[2021-11-25 09:00] VITALS: BP 153/80
[2021-11-25] MEDS: HEPARIN SODIUM (PORCINE) 5000 UNITS/ML 1ML VIAL SC SCH ×2 (09:23→21:12)
[2021-11-25] MEDS: cefTRIAXone 1GM/50ML D5W 50 ML IV SCH (09:25)
[2021-11-25] MEDS: CARVEDILOL 3.125 MG TAB PO SCH ×2 (09:25→22:28)
[2021-11-25] MEDS: PANTOPRAZOLE 40 MG/10 ML VIAL INJ IV SCH ×2 (09:26→21:12)
[2021-11-25] MEDS: ACETAMINOPHEN 325 MG TAB PO PRN (09:26)
[2021-11-25] MEDS ORDERED: FUROSEMIDE 100 MG/10ML VIAL IV ONE (10:00)
[2021-11-25 10:50] LABS: Calcium 8.2 mg/dL (8.5-10.1); Potassium 5.1 mmol/L (3.5-5.1)
[2021-11-25 10:52] LABS: BUN/Creatinine Ratio 20.1
[2021-11-25] MEDS: ALBUMIN 25% 100 ML IV SCH ×2 (12:40→15:31)
[2021-11-25 13:00] VITALS: BP 142/77
[2021-11-25] MEDS: SODIUM ZIRCONIUM CYCL 10 GM PAK PO SCH ×2 (14:29→20:15)
[2021-11-25] MEDS ORDERED: ALBUMIN 25% 100 ML IV SCH (16:00)
[2021-11-25] MEDS: hydrALAZINE HCL 20 MG/ML VL IV PRN (18:53)
[2021-11-25] MEDS ORDERED: HYDROcodone-ACET 5/325MG TAB PO PRN (20:15)
[2021-11-25 21:00] VITALS: BP 161/73
[2021-11-25] MEDS: MORPHINE SULFATE INJECTION 2 MG/ML SYRG IV PRN (21:06)
[2021-11-25] MEDS: TEMAZEPAM 15 MG CAP PO PRN (22:21)
[2021-11-26] MEDS: SODIUM ZIRCONIUM CYCL 10 GM PAK PO SCH (04:02)
[2021-11-26 05:00] VITALS: BP 163/67
[2021-11-26 06:01] LABS: Alanine Aminotransferase 9 U/L (13-56); Albumin 1.9 g/dL (3.4-5.0); Bilirubin, Direct < 0.1 mg/dL (0-0.2); Uric Acid 9.8 mg/dL (2.6-6.0)
[2021-11-26 06:04] LABS: Alkaline Phosphatase 55 U/L (45-117); Aspartate Aminotransferase 15 U/L (15-37); Bilirubin, Total 0.1 mg/dL (0.2-1.0); Phosphorus 6.5 mg/dL (2.5-4.90)
[2021-11-26] MEDS: LEVOTHYROXINE SODIUM 112 MCG TAB PO SCH (06:04)
[2021-11-26] MEDS: LEVOTHYROXINE SODIUM 25 MCG TAB PO SCH (06:04)
[2021-11-26] MEDS: hydrALAZINE HCL 25 MG TAB PO SCH ×3 (06:04→21:31)
[2021-11-26] MEDS: ACCU-CHEK COMFORT CURVE STRIP VI SCH ×4 (06:05→21:40)
[2021-11-26] MEDS: InsuLIN REG 1unit/0.01ml Soln (100units/ml) SC SCH ×4 (06:12→21:40)
[2021-11-26 07:55] LABS: Calcium 7.4 mg/dL (8.5-10.1); Potassium 4.2 mmol/L (3.5-5.1)
[2021-11-26 08:00] VITALS: BP_SYST 110; BP_SYST 161; BP_SYST 170; BP_DIAS 66; BP_DIAS 70; BP_DIAS 71
[2021-11-26] MEDS: cefTRIAXone 1GM/50ML D5W 50 ML IV SCH (09:52)
[2021-11-26] MEDS: FERROUS SULFATE 325mg EC TAB PO SCH (09:53)
[2021-11-26] MEDS: CARVEDILOL 3.125 MG TAB PO SCH ×2 (09:53→21:41)
[2021-11-26] MEDS: HEPARIN SODIUM (PORCINE) 5000 UNITS/ML 1ML VIAL SC SCH ×2 (10:05→21:40)
[2021-11-26] MEDS: predniSONE 20 MG TAB PO SCH ×3 (11:21→21:31)
[2021-11-26] MEDS: PANTOPRAZOLE 40 MG/10 ML VIAL INJ IV SCH ×2 (11:21→21:31)
[2021-11-26 12:00] VITALS: BP 161/71
[2021-11-26 16:00] VITALS: BP 172/65
[2021-11-26] MEDS ORDERED: FUROSEMIDE 40 MG/4 ML VIAL IV ONE (16:15)
[2021-11-26] MEDS: CALCIUM ACETATE 667 MG CAP PO SCH (16:58)
[2021-11-26] MEDS: MORPHINE SULFATE INJECTION 2 MG/ML SYRG IV PRN (19:34)
[2021-11-26 22:00] VITALS: BP 166/73
[2021-11-27 05:00] VITALS: BP 174/81
[2021-11-27] MEDS: predniSONE 20 MG TAB PO SCH ×3 (05:39→21:47)
[2021-11-27] MEDS: hydrALAZINE HCL 25 MG TAB PO SCH ×3 (05:40→21:47)
[2021-11-27] MEDS: MORPHINE SULFATE INJECTION 2 MG/ML SYRG IV PRN (05:41)
[2021-11-27 05:46] LABS: Calcium 7.4 mg/dL (8.5-10.1); Potassium 3.8 mmol/L (3.5-5.1)
[2021-11-27 05:48] LABS: BUN/Creatinine Ratio 24.5
[2021-11-27] MEDS: LEVOTHYROXINE SODIUM 112 MCG TAB PO SCH (06:41)
[2021-11-27] MEDS: LEVOTHYROXINE SODIUM 25 MCG TAB PO SCH (06:42)
[2021-11-27] MEDS: InsuLIN REG 1unit/0.01ml Soln (100units/ml) SC SCH ×4 (06:42→21:39)
[2021-11-27] MEDS: ACCU-CHEK COMFORT CURVE STRIP VI SCH ×4 (06:42→21:46)
[2021-11-27 08:00] VITALS: BP 145/75
[2021-11-27] MEDS: CALCIUM ACETATE 667 MG CAP PO SCH ×3 (09:13→17:42)
[2021-11-27] MEDS: PANTOPRAZOLE 40 MG/10 ML VIAL INJ IV SCH ×2 (09:13→21:47)
[2021-11-27] MEDS: FUROSEMIDE 40 MG TAB PO SCH (09:14)
[2021-11-27] MEDS: ONDANSETRON HCL 4 MG/2 ML VIAL IV PRN ×2 (09:15→13:06)
[2021-11-27] MEDS: cefTRIAXone 1GM/50ML D5W 50 ML IV SCH (09:21)
[2021-11-27] MEDS: HEPARIN SODIUM (PORCINE) 5000 UNITS/ML 1ML VIAL SC SCH ×2 (09:37→21:40)
[2021-11-27] MEDS: CARVEDILOL 3.125 MG TAB PO SCH ×2 (10:00→21:47)
[2021-11-27 12:00] VITALS: BP 181/76
[2021-11-27] MEDS: SODIUM BICARBONATE 650 MG TAB PO SCH ×2 (13:04→21:47)
[2021-11-27] MEDS: hydrALAZINE HCL 20 MG/ML VL IV PRN (13:10)
[2021-11-27 16:00] VITALS: BP 155/65
[2021-11-27 22:00] VITALS: BP 178/74
[2021-11-28 00:06] LABS: Urine Bacteria FEW /hpf (None Seen); Urine Blood Negative /uL (Negative); Urine Hyaline Cast FEW /lpf (0 - 2); Urine Specific Gravity 1.016 (1.001-1.035); Urine WBC 66 /hpf (0 - 5)
[2021-11-28 00:29] LABS: Protein, Urine 590.8 mg/dL (0.0-11.9)
[2021-11-28 05:00] VITALS: BP 168/90
[2021-11-28] MEDS: hydrALAZINE HCL 25 MG TAB PO SCH ×4 (06:19→22:30)
[2021-11-28] MEDS: predniSONE 20 MG TAB PO SCH ×2 (06:19→22:32)
[2021-11-28] MEDS: LEVOTHYROXINE SODIUM 112 MCG TAB PO SCH (06:39)
[2021-11-28] MEDS: LEVOTHYROXINE SODIUM 25 MCG TAB PO SCH (06:39)
[2021-11-28] MEDS: ACCU-CHEK COMFORT CURVE STRIP VI SCH ×4 (06:39→22:00)
[2021-11-28] MEDS: InsuLIN REG 1unit/0.01ml Soln (100units/ml) SC SCH ×4 (06:40→22:44)
[2021-11-28 06:47] LABS: Potassium 4.4 mmol/L (3.5-5.1)
[2021-11-28 06:55] LABS: BUN/Creatinine Ratio 26.3; Calcium 8.1 mg/dL (8.5-10.1)
[2021-11-28 08:30] VITALS: BP 180/83
[2021-11-28] MEDS ORDERED: FUROSEMIDE 100 MG/10ML VIAL IV ONE (09:15)
[2021-11-28 09:30] LABS: Basophils # (auto) 0 10 ^3/uL (0-0.2); Basophils % (auto) 0.1 % (0.0-2.0); Eosinophils # (auto) 0 10 ^3/uL (0-0.8); Hematocrit 30.5 % (36.0-46.0); Lymphocytes # (auto) 0.7 10 ^3/uL (0.4-5.4); Lymphocytes % (auto) 7.1 % (10.0-50.0); Mean Corpuscular Hemoglobin 30.1 pg (28.0-32.0); Mean Corpuscular Hgb Conc. 32.6 g/dL (32.0-36.0); Mean Corpuscular Volume 92.4 fL (80.0-100.0); Monocytes # (auto) 0.6 10 ^3/uL (0-1.3); Monocytes % (auto) 6.1 % (0.0-12.0); Neutrophils # (auto) 8.9 10 ^3/uL (1.6-8.6); Neutrophils % (auto) 86.7 % (37.0-80.0); Nucleated Red Blood Cells % 0.1 %; Red Cell Distribution Width 16.4 % (11.8-14.3); White Blood Cell 10.3 10^3/uL (4.4-10.8)
[2021-11-28] MEDS: CALCIUM ACETATE 667 MG CAP PO SCH ×3 (09:34→18:01)
[2021-11-28] MEDS: FERROUS SULFATE 325mg EC TAB PO SCH (09:34)
[2021-11-28] MEDS: SODIUM BICARBONATE 650 MG TAB PO SCH ×2 (09:34→22:30)
[2021-11-28] MEDS: PANTOPRAZOLE 40 MG/10 ML VIAL INJ IV SCH ×2 (09:35→22:29)
[2021-11-28] MEDS: cefTRIAXone 1GM/50ML D5W 50 ML IV SCH (09:36)
[2021-11-28] MEDS: hydrALAZINE HCL 20 MG/ML VL IV PRN ×3 (09:36→20:52)
[2021-11-28] MEDS: CARVEDILOL 3.125 MG TAB PO SCH ×2 (10:00→22:31)
[2021-11-28] MEDS: HEPARIN SODIUM (PORCINE) 5000 UNITS/ML 1ML VIAL SC SCH ×2 (10:03→22:28)
[2021-11-28 12:00] VITALS: BP 198/95
[2021-11-28] MEDS: FUROSEMIDE 40 MG TAB PO SCH (14:16)
[2021-11-28 16:00] VITALS: BP_SYST 141; BP_SYST 182; BP_DIAS 87; BP_DIAS 90
[2021-11-28 22:00] VITALS: BP 165/81
[2021-11-28] MEDS: TEMAZEPAM 15 MG CAP PO PRN (22:29)
[2021-11-29 05:00] VITALS: BP 143/61
[2021-11-29] MEDS: hydrALAZINE HCL 25 MG TAB PO SCH ×3 (06:08→22:21)
[2021-11-29] MEDS: InsuLIN REG 1unit/0.01ml Soln (100units/ml) SC SCH ×4 (07:00→22:19)
[2021-11-29] MEDS: LEVOTHYROXINE SODIUM 112 MCG TAB PO SCH (07:22)
[2021-11-29] MEDS: LEVOTHYROXINE SODIUM 25 MCG TAB PO SCH (07:22)
[2021-11-29] MEDS: ACCU-CHEK COMFORT CURVE STRIP VI SCH ×4 (07:22→22:19)
[2021-11-29 09:00] VITALS: BP 189/88
[2021-11-29] MEDS: cefTRIAXone 1GM/50ML D5W 50 ML IV SCH (09:09)
[2021-11-29] MEDS: predniSONE 20 MG TAB PO SCH ×2 (09:10→22:21)
[2021-11-29] MEDS: CALCIUM ACETATE 667 MG CAP PO SCH ×3 (09:10→17:51)
[2021-11-29] MEDS: FUROSEMIDE 40 MG TAB PO SCH (09:11)
[2021-11-29] MEDS: PANTOPRAZOLE 40 MG/10 ML VIAL INJ IV SCH ×2 (09:11→22:21)
[2021-11-29] MEDS: SODIUM BICARBONATE 650 MG TAB PO SCH ×2 (09:11→22:20)
[2021-11-29] MEDS: HEPARIN SODIUM (PORCINE) 5000 UNITS/ML 1ML VIAL SC SCH ×2 (09:12→22:18)
[2021-11-29] MEDS: CARVEDILOL 3.125 MG TAB PO SCH ×3 (09:13→22:00)
[2021-11-29 11:15] LABS: Calcium 7.5 mg/dL (8.5-10.1); Potassium 4.5 mmol/L (3.5-5.1)
[2021-11-29 11:18] LABS: BUN/Creatinine Ratio 26.1
[2021-11-29] MEDS: hydrALAZINE HCL 20 MG/ML VL IV PRN (12:05)
[2021-11-29 13:26] VITALS: BP 160/56
[2021-11-29 16:47] LABS: INR 0.98 (0.9-1.15); Partial Thromboplastin Time 25.6 sec (23.6-33.0)
[2021-11-29 17:00] VITALS: BP 177/67
[2021-11-29 22:00] VITALS: BP 169/77
[2021-11-29] MEDS: TEMAZEPAM 15 MG CAP PO PRN (23:03)
[2021-11-30] VITALS (9 sets, daily range): BP systolic 149–194; BP diastolic 67–97
[2021-11-30] MEDS: hydrALAZINE HCL 25 MG TAB PO SCH ×3 (06:18→21:56)
[2021-11-30 06:26] LABS: BUN/Creatinine Ratio 26.7; Calcium 7.8 mg/dL (8.5-10.1); Potassium 4.5 mmol/L (3.5-5.1)
[2021-11-30 06:34] LABS: % Iron Saturation 75.5 % (15-50)
[2021-11-30] MEDS ORDERED: SODIUM CHL 0.9% 1000 ML BAG XX ONE (07:00)
[2021-11-30] MEDS: LEVOTHYROXINE SODIUM 112 MCG TAB PO SCH (07:05)
[2021-11-30] MEDS: LEVOTHYROXINE SODIUM 25 MCG TAB PO SCH (07:05)
[2021-11-30] MEDS: ACCU-CHEK COMFORT CURVE STRIP VI SCH ×4 (07:05→22:00)
[2021-11-30] MEDS: InsuLIN REG 1unit/0.01ml Soln (100units/ml) SC SCH ×4 (07:06→22:11)
[2021-11-30] MEDS: PANTOPRAZOLE 40 MG/10 ML VIAL INJ IV SCH ×2 (08:58→21:56)
[2021-11-30] MEDS: cefTRIAXone 1GM/50ML D5W 50 ML IV SCH (08:58)
[2021-11-30] MEDS: CALCIUM ACETATE 667 MG CAP PO SCH ×3 (08:59→18:44)
[2021-11-30] MEDS: SODIUM BICARBONATE 650 MG TAB PO SCH ×2 (08:59→21:56)
[2021-11-30] MEDS: FUROSEMIDE 40 MG TAB PO SCH (08:59)
[2021-11-30] MEDS: predniSONE 20 MG TAB PO SCH ×2 (08:59→21:56)
[2021-11-30] MEDS: CARVEDILOL 3.125 MG TAB PO SCH ×2 (09:00→21:56)
[2021-11-30] MEDS: FERROUS SULFATE 325mg EC TAB PO SCH (09:00)
[2021-11-30] MEDS: HEPARIN SODIUM (PORCINE) 5000 UNITS/ML 1ML VIAL SC SCH ×2 (09:11→21:58)
[2021-11-30] MEDS ORDERED: cloNIDine HCL 0.1 MG TAB PO PRN (12:15)
[2021-11-30] MEDS ORDERED: LIDOCAINE 2%HCL (LOCAL ANESTH.) INJ 10ml MDV ONE (12:57)
[2021-11-30] MEDS ORDERED: fentaNYL CITRATE 100 MCG/2 ML VL ONE (13:14)
[2021-11-30] MEDS ORDERED: MIDAZOLAM HCL 2MG/2ML 2ml VIAL (1mg/ml) ONE (13:14)
[2021-11-30] MEDS ORDERED: HEPARIN SODIUM (PORCINE) 5000 UNITS/ML 1ML VIAL ONE (13:19)
[2021-11-30] MEDS ORDERED: IODIXANOL 320MG/ML 100ML BTL IV ONE (13:26)
[2021-11-30 14:38] LABS: Hematocrit 25.7 % (36.0-46.0); Hemoglobin 8.5 g/dL (12.2-16.2)
[2021-11-30] MEDS: ACETAMINOPHEN 325 MG TAB PO PRN (20:03)
[2021-11-30] MEDS ORDERED: EPOETIN ALFA-EPBX 10,000 UNIT/1ML VIAL SC ONE (21:00)
[2021-11-30] MEDS: TEMAZEPAM 15 MG CAP PO PRN (22:09)
[2021-12-01 05:00] VITALS: BP 159/78
[2021-12-01] MEDS: hydrALAZINE HCL 25 MG TAB PO SCH ×3 (05:04→21:58)
[2021-12-01] MEDS: ACETAMINOPHEN 325 MG TAB PO PRN ×3 (05:12→22:59)
[2021-12-01 06:06] LABS: Basophils # (auto) 0 10 ^3/uL (0-0.2); Basophils % (auto) 0.2 % (0.0-2.0); Eosinophils # (auto) 0 10 ^3/uL (0-0.8); Eosinophils % (auto) 0.4 % (0.0-7.0); Hematocrit 26.1 % (36.0-46.0); Hemoglobin 8.6 g/dL (12.2-16.2); Lymphocytes # (auto) 0.6 10 ^3/uL (0.4-5.4); Lymphocytes % (auto) 4.9 % (10.0-50.0); Mean Corpuscular Hemoglobin 30.3 pg (28.0-32.0); Mean Corpuscular Volume 91.8 fL (80.0-100.0); Monocytes # (auto) 0.9 10 ^3/uL (0-1.3); Monocytes % (auto) 7.1 % (0.0-12.0); Neutrophils # (auto) 11.1 10 ^3/uL (1.6-8.6); Neutrophils % (auto) 87.4 % (37.0-80.0); Red Blood Cells 2.85 10^6/uL (4.0-5.20); Red Cell Distribution Width 16.3 % (11.8-14.3); White Blood Cell 12.7 10^3/uL (4.4-10.8)
[2021-12-01 06:09] LABS: Potassium 4.2 mmol/L (3.5-5.1)
[2021-12-01 06:15] LABS: BUN/Creatinine Ratio 25.8; Calcium 7.9 mg/dL (8.5-10.1); Phosphorus 4.3 mg/dL (2.5-4.90)
[2021-12-01] MEDS: InsuLIN REG 1unit/0.01ml Soln (100units/ml) SC SCH ×4 (06:34→22:43)
[2021-12-01] MEDS: ACCU-CHEK COMFORT CURVE STRIP VI SCH ×4 (06:35→22:00)
[2021-12-01] MEDS: LEVOTHYROXINE SODIUM 112 MCG TAB PO SCH (06:36)
[2021-12-01] MEDS: LEVOTHYROXINE SODIUM 25 MCG TAB PO SCH (06:36)
[2021-12-01] MEDS ORDERED: SODIUM CHL 0.9% 1000 ML BAG XX ONE (07:00)
[2021-12-01 09:00] VITALS: BP 162/91
[2021-12-01] MEDS: PANTOPRAZOLE 40 MG/10 ML VIAL INJ IV SCH ×2 (12:41→21:57)
[2021-12-01] MEDS: CALCIUM ACETATE 667 MG CAP PO SCH ×3 (12:42→17:36)
[2021-12-01] MEDS: CARVEDILOL 3.125 MG TAB PO SCH ×2 (12:43→21:59)
[2021-12-01] MEDS: SODIUM BICARBONATE 650 MG TAB PO SCH ×2 (12:44→21:59)
[2021-12-01] MEDS: cefTRIAXone 1GM/50ML D5W 50 ML IV SCH (12:45)
[2021-12-01] MEDS: predniSONE 20 MG TAB PO SCH ×2 (12:45→21:59)
[2021-12-01] MEDS: HEPARIN SODIUM (PORCINE) 5000 UNITS/ML 1ML VIAL SC SCH ×2 (12:58→22:01)
[2021-12-01 13:00] VITALS: BP 178/84
[2021-12-01] MEDS: ALBUMIN 25% 100 ML IV PRN ×2 (13:00→13:02)
[2021-12-01] MEDS ORDERED: EPOETIN ALFA-EPBX 10,000 UNIT/1ML VIAL SC ONE (21:00)
[2021-12-01 22:00] VITALS: BP 144/74
[2021-12-01] MEDS: TEMAZEPAM 15 MG CAP PO PRN (22:58)
[2021-12-02 05:00] VITALS: BP 182/87
[2021-12-02] MEDS: hydrALAZINE HCL 25 MG TAB PO SCH ×3 (05:37→21:52)
[2021-12-02] MEDS: ACETAMINOPHEN 325 MG TAB PO PRN ×2 (05:41→20:09)
[2021-12-02] MEDS: InsuLIN REG 1unit/0.01ml Soln (100units/ml) SC SCH ×4 (06:18→22:07)
[2021-12-02] MEDS: LEVOTHYROXINE SODIUM 112 MCG TAB PO SCH (06:32)
[2021-12-02] MEDS: LEVOTHYROXINE SODIUM 25 MCG TAB PO SCH (06:32)
[2021-12-02] MEDS: ACCU-CHEK COMFORT CURVE STRIP VI SCH ×4 (06:33→21:54)
[2021-12-02 09:00] VITALS: BP 154/77
[2021-12-02] MEDS: cefTRIAXone 1GM/50ML D5W 50 ML IV SCH (10:23)
[2021-12-02] MEDS: CALCIUM ACETATE 667 MG CAP PO SCH ×3 (10:23→17:33)
[2021-12-02] MEDS: predniSONE 20 MG TAB PO SCH ×2 (10:24→21:53)
[2021-12-02] MEDS: SODIUM BICARBONATE 650 MG TAB PO SCH ×2 (10:24→21:53)
[2021-12-02] MEDS: CARVEDILOL 3.125 MG TAB PO SCH ×2 (10:25→21:53)
[2021-12-02] MEDS: PANTOPRAZOLE 40 MG/10 ML VIAL INJ IV SCH ×2 (10:25→21:51)
[2021-12-02] MEDS: HEPARIN SODIUM (PORCINE) 5000 UNITS/ML 1ML VIAL SC SCH ×2 (11:06→22:06)
[2021-12-02 12:50] LABS: BUN/Creatinine Ratio 20.1; Calcium 7.7 mg/dL (8.5-10.1); Potassium 3.7 mmol/L (3.5-5.1)
[2021-12-02 13:00] VITALS: BP 158/85
[2021-12-02 17:00] VITALS: BP 139/72
[2021-12-02] MEDS: TEMAZEPAM 15 MG CAP PO PRN (21:53)
[2021-12-02 22:00] VITALS: BP 138/61
[2021-12-03 05:00] VITALS: BP 154/72
[2021-12-03] MEDS: hydrALAZINE HCL 25 MG TAB PO SCH ×2 (06:06→19:06)
[2021-12-03] MEDS: InsuLIN REG 1unit/0.01ml Soln (100units/ml) SC SCH ×3 (06:19→18:18)
[2021-12-03] MEDS: LEVOTHYROXINE SODIUM 112 MCG TAB PO SCH (06:27)
[2021-12-03] MEDS: LEVOTHYROXINE SODIUM 25 MCG TAB PO SCH (06:27)
[2021-12-03 06:31] LABS: Calcium 7.1 mg/dL (8.5-10.1); Potassium 3.7 mmol/L (3.5-5.1)
[2021-12-03 06:33] LABS: BUN/Creatinine Ratio 14.2
[2021-12-03] MEDS: ACCU-CHEK COMFORT CURVE STRIP VI SCH ×3 (07:00→18:17)
[2021-12-03] MEDS ORDERED: SODIUM CHL 0.9% 1000 ML BAG XX ONE (07:00)
[2021-12-03 08:59] VITALS: BP 168/66
[2021-12-03] MEDS: PANTOPRAZOLE 40 MG/10 ML VIAL INJ IV SCH (09:14)
[2021-12-03] MEDS: cefTRIAXone 1GM/50ML D5W 50 ML IV SCH (09:14)
[2021-12-03] MEDS: CALCIUM ACETATE 667 MG CAP PO SCH ×3 (09:14→18:17)
[2021-12-03] MEDS: FERROUS SULFATE 325mg EC TAB PO SCH (09:15)
[2021-12-03] MEDS: predniSONE 20 MG TAB PO SCH (09:15)
[2021-12-03] MEDS: SODIUM BICARBONATE 650 MG TAB PO SCH (09:15)
[2021-12-03] MEDS: CARVEDILOL 3.125 MG TAB PO SCH (09:16)
[2021-12-03] MEDS ORDERED: HYDR50TA15 PO (09:24)
[2021-12-03] MEDS: HEPARIN SODIUM (PORCINE) 5000 UNITS/ML 1ML VIAL SC SCH (09:26)
[2021-12-03 09:39] LABS: Hepatitis B Surface Antibody Negative (Negative)
[2021-12-03 11:50] VITALS: BP 168/66
[2021-12-03 13:00] VITALS: BP 179/79
[2021-12-03 13:11] LABS: Hepatitis C Antibody Negative (Negative)
[2021-12-03 17:17] VITALS: BP 181/71
[2021-12-03] MEDS ORDERED: EPOETIN ALFA-EPBX 10,000 UNIT/1ML VIAL SC ONE (21:00)
== END 2021-12-03 19:45 | disposition home or self-care (01) | DRG 346 ==
LOC: ER 15:24 → TELE 11-23 01:18 → TELE-WESTW 11-23 03:38
PROVIDERS: ADMIT Hospitalist; ATTEND Hospitalist
PROC: 0JH63XZ Insertion of Tunneled Vascular Access Device into Chest Subcutaneous Tissue and Fascia, Percutaneous Approach (ICD-10-PCS; principal; 2021-11-30)
PROC: 02H633Z Insertion of Infusion Device into Right Atrium, Percutaneous Approach (ICD-10-PCS; 2021-11-30)
PROC: B548ZZA Ultrasonography of Superior Vena Cava, Guidance (ICD-10-PCS; 2021-11-30)
PROC: 5A1D70Z Performance of Urinary Filtration, Intermittent, Less than 6 Hours Per Day (ICD-10-PCS; 2021-11-30)
PROC: B5181ZA Fluoroscopy of Superior Vena Cava using Low Osmolar Contrast, Guidance (ICD-10-PCS; 2021-11-30)
PROC: 5A1D70Z Performance of Urinary Filtration, Intermittent, Less than 6 Hours Per Day (ICD-10-PCS; 2021-12-01)
PROC: 5A1D70Z Performance of Urinary Filtration, Intermittent, Less than 6 Hours Per Day (ICD-10-PCS; 2021-12-02)
DX: M32.14 Glomerular disease in systemic lupus erythematosus (principal); I13.2 Hypertensive heart and chronic kidney disease with heart failure and with stage 5 chronic kidney disease, or end stage renal disease; N17.9 Acute kidney failure, unspecified; N00.9 Acute nephritic syndrome with unspecified morphologic changes; E11.22 Type 2 diabetes mellitus with diabetic chronic kidney disease; E83.39 Other disorders of phosphorus metabolism; E88.09 Other disorders of plasma-protein metabolism, not elsewhere classified; D64.9 Anemia, unspecified; N18.6 End stage renal disease; Z20.822 Contact with and (suspected) exposure to COVID-19; R80.9 Proteinuria, unspecified; I50.9 Heart failure, unspecified; I16.0 Hypertensive urgency; E87.5 Hyperkalemia; N39.0 Urinary tract infection, site not specified; Z80.3 Family history of malignant neoplasm of breast; Z82.0 Family history of epilepsy and other diseases of the nervous system; Z99.2 Dependence on renal dialysis; Z88.5 Allergy status to narcotic agent
CPT/HCPCS: 36415; 71045; 76942; 80048; 80053; 80076; 81001; 82570; 82728; 82962; 83540; 83550; 83880; 84100; 84156; 84300; 84484; 84550; 85014; 85018; 85025; 85610; 85730; 86038; 86160; 86706; 86803; 87081; 87086; 87340; 90935; 93005; 93970; 93971; 94640; 96374; 96375; 97110; 97116; 97530; 99152; 99153; 99291; C9113; G0378; J0696; J1815; J2001; J2250; J2405; J3490; P9047; Q9967

== ENCOUNTER 2021-12-31 12:39 | Inpatient (IN) | payer MEDICAID ==
[~2021-12-31] VITALS: Ht 157.5 cm; Wt 65.4 kg
[~2021-12-31 12:39] MED LIST changes: -FURO40TA4 PO
[2021-12-31 14:50] LABS: Hemoglobin 8.4 g/dL (12.2-16.2)
[2021-12-31 14:53] LABS: Hematocrit 24.6 % (36.0-46.0); Mean Corpuscular Hemoglobin 33.1 pg (28.0-32.0); Mean Corpuscular Hgb Conc. 34.2 g/dL (32.0-36.0); Mean Corpuscular Volume 96.6 fL (80.0-100.0); Red Blood Cells 2.54 10^6/uL (4.0-5.20); Red Cell Distribution Width 18.2 % (11.8-14.3)
[2021-12-31 15:11] LABS: Alanine Aminotransferase 28 U/L (13-56); Albumin 2.2 g/dL (3.4-5.0); Anion Gap 15 (5-15); Aspartate Aminotransferase 23 U/L (15-37); BUN/Creatinine Ratio 14.7; Blood Urea Nitrogen 65 mg/dL (7-18); Calcium 7.6 mg/dL (8.5-10.1); Carbon Dioxide 22 mmol/L (21-32); Chloride 103 mmol/L (98-107); GFR African American 13 mL/min; GFR Non-African American 11 mL/min; Glucose 202 mg/dL (74-106); Potassium 3.6 mmol/L (3.5-5.1); Sodium 140 mmol/L (136-145)
[2021-12-31 15:14] LABS: Alkaline Phosphatase 76 U/L (45-117); Bilirubin, Total 0.3 mg/dL (0.2-1.0); Total Protein 5.5 g/dL (6.4-8.2)
[2021-12-31 16:10] LABS: White Blood Cell 1.9 10^3/uL (4.4-10.8)
[2021-12-31 16:12] LABS: Band Neutrophils % (manual) 0; Basophils % (manual) 0 (0.0-2.0); Blast Cells 0; Eosinophils % (manual) 0 (0-7); Metamyelocytes % 0; Myelocytes % 0; Promyelocytes % 0; Reactive Lymphocytes 0
[2021-12-31 17:32] LABS: Lymphocytes % (manual) 10 (10.0-50.0); Monocytes % (manual) 2 (0-12)
[2021-12-31] MEDS ORDERED: NITROGLYCERIN 0.4 MG SL TAB SL PRN (20:45)
[2021-12-31] MEDS ORDERED: DEXTROSE (50%) 50ML SYRG IV PRN (20:45)
[2021-12-31] MEDS ORDERED: CARVEDILOL 3.125 MG TAB PO SCH (22:00)
[2021-12-31] MEDS ORDERED: PATIENTS OWN MEDICATION (Hydralazine Hcl 1 TAB) PO SCH (22:00)
[2021-12-31] MEDS: InsuLIN REG 1unit/0.01ml Soln (100units/ml) SC SCH (22:00)
[2021-12-31] MEDS: ACCU-CHEK COMFORT CURVE STRIP VI SCH (22:13)
[2021-12-31] MEDS: hydrALAZINE HCL 25 MG TAB PO SCH (22:18)
[2021-12-31] MEDS: PIPERACILLIN-TAZOB 2.25GM 50 ML IV SCH (22:18)
[2021-12-31 22:42] LABS: Basophils # (auto) 0 10 ^3/uL (0-0.2); Eosinophils # (auto) 0 10 ^3/uL (0-0.8); Hemoglobin 7.3 g/dL (12.2-16.2)
[2021-12-31 22:45] LABS: Basophils % (auto) 0.5 % (0.0-2.0); Hematocrit 20.8 % (36.0-46.0); Lymphocytes # (auto) 0.3 10 ^3/uL (0.4-5.4); Lymphocytes % (auto) 14.7 % (10.0-50.0); Mean Corpuscular Hemoglobin 33.6 pg (28.0-32.0); Mean Corpuscular Volume 95.9 fL (80.0-100.0); Monocytes # (auto) 0.1 10 ^3/uL (0-1.3); Monocytes % (auto) 2.7 % (0.0-12.0); Neutrophils # (auto) 1.9 10 ^3/uL (1.6-8.6); Neutrophils % (auto) 82.1 % (37.0-80.0); Nucleated Red Blood Cells % 0.1 %; Red Blood Cells 2.17 10^6/uL (4.0-5.20); White Blood Cell 2.3 10^3/uL (4.4-10.8)
[2022-01-01] MEDS: ACETAMINOPHEN 325 MG TAB PO PRN ×2 (00:41→19:12)
[2022-01-01 03:26] LABS: Basophils # (auto) 0 10 ^3/uL (0-0.2); Basophils % (auto) 0.7 % (0.0-2.0); Eosinophils # (auto) 0 10 ^3/uL (0-0.8); Hematocrit 19.3 % (36.0-46.0); Monocytes # (auto) 0.1 10 ^3/uL (0-1.3); Neutrophils # (auto) 1.8 10 ^3/uL (1.6-8.6); Red Blood Cells 2.02 10^6/uL (4.0-5.20); White Blood Cell 2.2 10^3/uL (4.4-10.8)
[2022-01-01 03:28] LABS: Eosinophils % (auto) 0.3 % (0.0-7.0); Lymphocytes # (auto) 0.3 10 ^3/uL (0.4-5.4); Lymphocytes % (auto) 14.9 % (10.0-50.0); Mean Corpuscular Hemoglobin 32.2 pg (28.0-32.0); Mean Corpuscular Hgb Conc. 33.8 g/dL (32.0-36.0); Mean Corpuscular Volume 95.5 fL (80.0-100.0); Monocytes % (auto) 2.7 % (0.0-12.0); Neutrophils % (auto) 81.4 % (37.0-80.0); Nucleated Red Blood Cells % 0.1 %; Red Cell Distribution Width 17.9 % (11.8-14.3)
[2022-01-01 03:33] LABS: Hemoglobin 6.5 g/dL (12.2-16.2)
[2022-01-01] MEDS: ACCU-CHEK COMFORT CURVE STRIP VI SCH ×4 (06:49→22:10)
[2022-01-01] MEDS: InsuLIN REG 1unit/0.01ml Soln (100units/ml) SC SCH ×4 (06:49→22:00)
[2022-01-01] MEDS: hydrALAZINE HCL 25 MG TAB PO SCH ×3 (06:50→23:19)
[2022-01-01 09:22] LABS: Hematocrit 20.7 % (36.0-46.0); Mean Corpuscular Hemoglobin 32.4 pg (28.0-32.0); Mean Corpuscular Hgb Conc. 33.6 g/dL (32.0-36.0); Mean Corpuscular Volume 96.5 fL (80.0-100.0); Red Blood Cells 2.15 10^6/uL (4.0-5.20); Red Cell Distribution Width 17.5 % (11.8-14.3)
[2022-01-01 09:35] LABS: White Blood Cell 1.8 10^3/uL (4.4-10.8)
[2022-01-01 09:36] LABS: Basophils % (manual) 0 (0.0-2.0); Blast Cells 0; Eosinophils % (manual) 0 (0-7); Metamyelocytes % 0; Monocytes % (manual) 0 (0-12); Myelocytes % 0; Promyelocytes % 0; Reactive Lymphocytes 0
[2022-01-01] MEDS ORDERED: PATIENTS OWN MEDICATION (Levothyroxine Sodium 1 TAB) PO SCH (10:00)
[2022-01-01] MEDS: LEVOTHYROXINE SODIUM 25 MCG TAB PO SCH (10:29)
[2022-01-01] MEDS: PIPERACILLIN-TAZOB 2.25GM 50 ML IV SCH (10:29)
[2022-01-01] MEDS: LEVOTHYROXINE SODIUM 112 MCG TAB PO SCH (10:29)
[2022-01-01 11:00] LABS: Band Neutrophils % (manual) 14; Lymphocytes % (manual) 12 (10.0-50.0)
[2022-01-01 15:01] VITALS: BP 175/83
[2022-01-01 15:16] VITALS: BP 176/77
[2022-01-01 18:38] VITALS: BP 171/73
[2022-01-01] MEDS ORDERED: SULF400T11 PO (19:34)
[2022-01-01] MEDS ORDERED: MYCO500T PO (19:34)
[2022-01-01] MEDS ORDERED: HYDR-4298 PO (19:34)
[2022-01-01] MEDS ORDERED: FURO1TAB31 PO (19:34)
[2022-01-01] MEDS ORDERED: ACET-1158 PO (19:34)
[2022-01-01] MEDS ORDERED: PRED20TA2 PO (19:34)
[2022-01-01] MEDS ORDERED: GABA100C9 PO (19:34)
[2022-01-01 19:35] LABS: Basophils # (auto) 0 10 ^3/uL (0-0.2); Eosinophils # (auto) 0 10 ^3/uL (0-0.8); Hemoglobin 10.2 g/dL (12.2-16.2); Lymphocytes # (auto) 0.2 10 ^3/uL (0.4-5.4); Monocytes # (auto) 0.1 10 ^3/uL (0-1.3); Neutrophils # (auto) 1.9 10 ^3/uL (1.6-8.6); Nucleated Red Blood Cells % 0.1 %
[2022-01-01 19:37] LABS: Basophils % (auto) 1.7 % (0.0-2.0); Eosinophils % (auto) 0.3 % (0.0-7.0); Hematocrit 30.1 % (36.0-46.0); Lymphocytes % (auto) 7.7 % (10.0-50.0); Mean Corpuscular Hemoglobin 31.3 pg (28.0-32.0); Mean Corpuscular Hgb Conc. 33.9 g/dL (32.0-36.0); Mean Corpuscular Volume 92.4 fL (80.0-100.0); Monocytes % (auto) 3.8 % (0.0-12.0); Neutrophils % (auto) 86.5 % (37.0-80.0); Red Blood Cells 3.25 10^6/uL (4.0-5.20); Red Cell Distribution Width 19.5 % (11.8-14.3); White Blood Cell 2.1 10^3/uL (4.4-10.8)
[2022-01-01] MEDS: CEFEPIME 1GM/ 50ML 50 ML IV SCH (20:53)
[2022-01-01] MEDS: methylPREDNISolone SOD SUCC 125 MG/2 ML VL IV SCH (23:18)
[2022-01-02] MEDS: ONDANSETRON HCL 4 MG/2 ML VIAL IV PRN (02:43)
[2022-01-02 05:00] VITALS: BP 154/82
[2022-01-02] MEDS: hydrALAZINE HCL 25 MG TAB PO SCH ×3 (05:30→22:00)
[2022-01-02] MEDS: methylPREDNISolone SOD SUCC 125 MG/2 ML VL IV SCH ×3 (05:59→22:04)
[2022-01-02] MEDS: ACCU-CHEK COMFORT CURVE STRIP VI SCH ×4 (06:00→22:08)
[2022-01-02] MEDS: InsuLIN REG 1unit/0.01ml Soln (100units/ml) SC SCH ×4 (06:09→22:13)
[2022-01-02 06:58] LABS: Hematocrit 30.8 % (36.0-46.0); Hemoglobin 9.7 g/dL (12.2-16.2); Mean Corpuscular Hemoglobin 31.3 pg (28.0-32.0); Mean Corpuscular Hgb Conc. 31.7 g/dL (32.0-36.0); Mean Corpuscular Volume 98.7 fL (80.0-100.0); Red Blood Cells 3.12 10^6/uL (4.0-5.20)
[2022-01-02] MEDS ORDERED: SODIUM CHL 0.9% 1000 ML BAG XX ONE (07:00)
[2022-01-02 07:04] LABS: Red Cell Distribution Width 20.4 % (11.8-14.3); White Blood Cell 1.7 10^3/uL (4.4-10.8)
[2022-01-02 07:06] LABS: Basophils % (manual) 0 (0.0-2.0); Blast Cells 0; Eosinophils % (manual) 0 (0-7); Metamyelocytes % 0; Myelocytes % 0; Promyelocytes % 0; Reactive Lymphocytes 0
[2022-01-02 09:00] VITALS: BP 167/82
[2022-01-02 09:38] LABS: Band Neutrophils % (manual) 1; Lymphocytes % (manual) 13 (10.0-50.0); Monocytes % (manual) 4 (0-12)
[2022-01-02] MEDS ORDERED: PATIENTS OWN MEDICATION (Ferrous Sulfate (Iron) 325 MG) PO SCH (10:00)
[2022-01-02] MEDS: LEVOTHYROXINE SODIUM 112 MCG TAB PO SCH (10:27)
[2022-01-02] MEDS: LEVOTHYROXINE SODIUM 25 MCG TAB PO SCH (10:27)
[2022-01-02] MEDS: FERROUS SULFATE 325mg EC TAB PO SCH (10:28)
[2022-01-02] MEDS ORDERED: ALBUMIN 25% 100 ML IV PRN ×2 (11:30→12:45)
[2022-01-02 13:00] VITALS: BP 174/80
[2022-01-02 17:00] VITALS: BP 149/68
[2022-01-02] MEDS: metroNIDAZOLE 500MG/100ML 100 ML IV SCH (17:18)
[2022-01-02] MEDS: CEFEPIME 1GM/ 50ML 50 ML IV SCH (20:26)
[2022-01-02] MEDS ORDERED: EPOETIN ALFA-EPBX 10,000 UNIT/1ML VIAL SC ONE (21:00)
[2022-01-02 22:00] VITALS: BP 119/55
[2022-01-03] MEDS: metroNIDAZOLE 500MG/100ML 100 ML IV SCH ×3 (00:36→14:58)
[2022-01-03 01:32] LABS: BUN/Creatinine Ratio 13.9; Calcium 7.7 mg/dL (8.5-10.1); Potassium 3.6 mmol/L (3.5-5.1)
[2022-01-03 05:00] VITALS: BP 138/56
[2022-01-03 05:57] LABS: Basophils # (auto) 0 10 ^3/uL (0-0.2); Eosinophils # (auto) 0 10 ^3/uL (0-0.8); Hemoglobin 9.2 g/dL (12.2-16.2); Monocytes # (auto) 0.1 10 ^3/uL (0-1.3); Neutrophils # (auto) 2.4 10 ^3/uL (1.6-8.6); Nucleated Red Blood Cells % 0.1 %; Red Cell Distribution Width 19.6 % (11.8-14.3); White Blood Cell 2.8 10^3/uL (4.4-10.8)
[2022-01-03 05:59] LABS: Basophils % (auto) 0.7 % (0.0-2.0); Lymphocytes # (auto) 0.2 10 ^3/uL (0.4-5.4); Mean Corpuscular Hemoglobin 31.9 pg (28.0-32.0); Mean Corpuscular Hgb Conc. 33.9 g/dL (32.0-36.0); Mean Corpuscular Volume 93.9 fL (80.0-100.0); Monocytes % (auto) 3.9 % (0.0-12.0); Neutrophils % (auto) 86.4 % (37.0-80.0); Red Blood Cells 2.87 10^6/uL (4.0-5.20)
[2022-01-03] MEDS: methylPREDNISolone SOD SUCC 125 MG/2 ML VL IV SCH ×3 (06:08→22:00)
[2022-01-03] MEDS: ACCU-CHEK COMFORT CURVE STRIP VI SCH ×4 (06:08→22:02)
[2022-01-03 06:19] LABS: Calcium 7.8 mg/dL (8.5-10.1); Potassium 3.8 mmol/L (3.5-5.1)
[2022-01-03 06:22] LABS: BUN/Creatinine Ratio 14.1
[2022-01-03] MEDS: hydrALAZINE HCL 25 MG TAB PO SCH ×3 (06:25→22:02)
[2022-01-03] MEDS: InsuLIN REG 1unit/0.01ml Soln (100units/ml) SC SCH ×4 (06:33→22:04)
[2022-01-03 10:00] VITALS: BP 171/70
[2022-01-03] MEDS: LEVOTHYROXINE SODIUM 112 MCG TAB PO SCH (10:21)
[2022-01-03] MEDS: BUMETANIDE 2.5mg/10ml (0.25 mg/ml) INJ IV SCH (10:21)
[2022-01-03] MEDS: LEVOTHYROXINE SODIUM 25 MCG TAB PO SCH (10:21)
[2022-01-03 11:51] LABS: Hepatitis C Antibody Negative (Negative)
[2022-01-03 17:18] VITALS: BP 156/78
[2022-01-03] MEDS: CEFEPIME 1GM/ 50ML 50 ML IV SCH (20:33)
[2022-01-03 22:00] VITALS: BP 170/72
[2022-01-04] MEDS: metroNIDAZOLE 500MG/100ML 100 ML IV SCH ×4 (00:37→22:00)
[2022-01-04 05:22] VITALS: BP 143/51
[2022-01-04] MEDS: ACCU-CHEK COMFORT CURVE STRIP VI SCH ×4 (05:55→22:00)
[2022-01-04] MEDS: methylPREDNISolone SOD SUCC 125 MG/2 ML VL IV SCH ×3 (05:55→22:00)
[2022-01-04] MEDS: hydrALAZINE HCL 25 MG TAB PO SCH ×3 (05:55→22:00)
[2022-01-04] MEDS: InsuLIN REG 1unit/0.01ml Soln (100units/ml) SC SCH ×4 (05:58→22:00)
[2022-01-04 06:07] LABS: Basophils # (auto) 0 10 ^3/uL (0-0.2); Eosinophils # (auto) 0 10 ^3/uL (0-0.8); Hemoglobin 10.3 g/dL (12.2-16.2); Lymphocytes # (auto) 0.2 10 ^3/uL (0.4-5.4); Monocytes # (auto) 0.1 10 ^3/uL (0-1.3); Neutrophils # (auto) 2.7 10 ^3/uL (1.6-8.6); Nucleated Red Blood Cells % 0.2 %; Red Blood Cells 3.32 10^6/uL (4.0-5.20)
[2022-01-04 06:10] LABS: Basophils % (auto) 0.9 % (0.0-2.0); Hematocrit 30.9 % (36.0-46.0); Lymphocytes % (auto) 5.2 % (10.0-50.0); Mean Corpuscular Hgb Conc. 33.3 g/dL (32.0-36.0); Monocytes % (auto) 3.5 % (0.0-12.0); Neutrophils % (auto) 90.4 % (37.0-80.0); Red Cell Distribution Width 19.4 % (11.8-14.3)
[2022-01-04 06:23] LABS: BUN/Creatinine Ratio 13.5; Potassium 3.4 mmol/L (3.5-5.1)
[2022-01-04] MEDS ORDERED: SODIUM CHL 0.9% 1000 ML BAG XX ONE (07:00)
[2022-01-04 09:00] VITALS: BP 152/87
[2022-01-04] MEDS: LEVOTHYROXINE SODIUM 112 MCG TAB PO SCH (10:24)
[2022-01-04] MEDS: LEVOTHYROXINE SODIUM 25 MCG TAB PO SCH (10:24)
[2022-01-04] MEDS: BUMETANIDE 2.5mg/10ml (0.25 mg/ml) INJ IV SCH (10:25)
[2022-01-04] MEDS: FERROUS SULFATE 325mg EC TAB PO SCH (10:25)
[2022-01-04] MEDS ORDERED: LORazepam 2MG/ML-1ML VIAL IV ONE (14:15)
[2022-01-04] MEDS ORDERED: HYOSCYAMINE SULF 0.125 MG ODT TAB PO PRN (16:15)
[2022-01-04 16:58] VITALS: BP 169/73
[2022-01-04] MEDS: CEFEPIME 1GM/ 50ML 50 ML IV SCH (20:31)
[2022-01-04] MEDS ORDERED: EPOETIN ALFA-EPBX 10,000 UNIT/1ML VIAL SC ONE (21:00)
[2022-01-04 22:00] VITALS: BP 144/62
[2022-01-05] MEDS ORDERED: HALOPERIDOL LACTATE 5 MG/ML INJ VIAL IM PRN ×3 (03:30→20:15)
[2022-01-05 05:00] VITALS: BP 166/98
[2022-01-05] MEDS ORDERED: LORazepam 2MG/ML-1ML VIAL IV PRN ×4 (05:15→16:30)
[2022-01-05] MEDS: hydrALAZINE HCL 25 MG TAB PO SCH ×3 (05:44→21:51)
[2022-01-05] MEDS: methylPREDNISolone SOD SUCC 125 MG/2 ML VL IV SCH ×3 (06:13→21:50)
[2022-01-05] MEDS: metroNIDAZOLE 500MG/100ML 100 ML IV SCH ×3 (06:13→22:59)
[2022-01-05] MEDS: ACCU-CHEK COMFORT CURVE STRIP VI SCH ×4 (06:13→21:53)
[2022-01-05] MEDS: InsuLIN REG 1unit/0.01ml Soln (100units/ml) SC SCH ×4 (06:14→21:52)
[2022-01-05] MEDS: LEVOTHYROXINE SODIUM 112 MCG TAB PO SCH (09:01)
[2022-01-05] MEDS: LEVOTHYROXINE SODIUM 25 MCG TAB PO SCH (09:01)
[2022-01-05] MEDS: BUMETANIDE 2.5mg/10ml (0.25 mg/ml) INJ IV SCH (09:01)
[2022-01-05] MEDS ORDERED: ERGOCALCIFEROL 50,000 UNIT(1.25MG) CAP PO SCH (11:45)
[2022-01-05] MEDS: METOPROLOL TARTRATE 25 MG TAB PO SCH ×2 (12:45→21:51)
[2022-01-05] MEDS ORDERED: FOLIC ACID 1 MG in D5W 5% 50 ML INJ ONE ×2 (16:00→16:15)
[2022-01-05 18:32] LABS: Basophils # (auto) 0 10 ^3/uL (0-0.2); Basophils % (auto) 0.3 % (0.0-2.0); Eosinophils # (auto) 0 10 ^3/uL (0-0.8); Lymphocytes # (auto) 0.3 10 ^3/uL (0.4-5.4); Lymphocytes % (auto) 16.5 % (10.0-50.0); Monocytes # (auto) 0.2 10 ^3/uL (0-1.3); Neutrophils # (auto) 1.3 10 ^3/uL (1.6-8.6)
[2022-01-05 18:34] LABS: Eosinophils % (auto) 0.1 % (0.0-7.0); Hematocrit 20.8 % (36.0-46.0); Hemoglobin 7.1 g/dL (12.2-16.2); Mean Corpuscular Hemoglobin 31.6 pg (28.0-32.0); Mean Corpuscular Hgb Conc. 34.2 g/dL (32.0-36.0); Mean Corpuscular Volume 92.5 fL (80.0-100.0); Neutrophils % (auto) 71.1 % (37.0-80.0); Nucleated Red Blood Cells % 0.1 %; Red Blood Cells 2.25 10^6/uL (4.0-5.20); Red Cell Distribution Width 19.4 % (11.8-14.3)
[2022-01-05 18:55] LABS: BUN/Creatinine Ratio 12.1; Calcium 8.2 mg/dL (8.5-10.1)
[2022-01-05 19:01] LABS: Potassium 2.8 mmol/L (3.5-5.1); White Blood Cell 1.8 10^3/uL (4.4-10.8)
[2022-01-05] MEDS ORDERED: POTASSIUM CHL 20MEQ/100ML 100 ML IV ONE (19:15)
[2022-01-05] MEDS: MORPHINE SULFATE INJ 2 MG/ml SYRG IV PRN (21:09)
[2022-01-05 22:00] VITALS: BP 175/78
[2022-01-05] MEDS: CEFEPIME 1GM/ 50ML 50 ML IV SCH (22:03)
[2022-01-05 22:42] LABS: Basophils # (auto) 0 10 ^3/uL (0-0.2); Basophils % (auto) 0.3 % (0.0-2.0); Eosinophils # (auto) 0 10 ^3/uL (0-0.8); Hematocrit 22.1 % (36.0-46.0); Hemoglobin 7.5 g/dL (12.2-16.2); Lymphocytes # (auto) 0.4 10 ^3/uL (0.4-5.4); Lymphocytes % (auto) 21.1 % (10.0-50.0); Mean Corpuscular Hemoglobin 31.5 pg (28.0-32.0); Mean Corpuscular Volume 92.7 fL (80.0-100.0); Monocytes # (auto) 0.2 10 ^3/uL (0-1.3); Monocytes % (auto) 10.4 % (0.0-12.0); Neutrophils # (auto) 1.2 10 ^3/uL (1.6-8.6); Neutrophils % (auto) 68.2 % (37.0-80.0); Nucleated Red Blood Cells % 0.7 %; Red Blood Cells 2.38 10^6/uL (4.0-5.20); Red Cell Distribution Width 18.8 % (11.8-14.3)
[2022-01-05 22:44] LABS: White Blood Cell 1.7 10^3/uL (4.4-10.8)
[2022-01-05] MEDS: ONDANSETRON HCL 4 MG/2 ML VIAL IV PRN (23:05)
[2022-01-05] MEDS: hydrALAZINE HCL 20 MG/ML VL IV PRN (23:39)
[2022-01-06] VITALS (19 sets, daily range): BP systolic 90–203; BP diastolic 40–108
[2022-01-06] MEDS: metroNIDAZOLE 500MG/100ML 100 ML IV SCH ×2 (06:10→13:38)
[2022-01-06] MEDS: methylPREDNISolone SOD SUCC 125 MG/2 ML VL IV SCH (06:11)
[2022-01-06] MEDS: hydrALAZINE HCL 25 MG TAB PO SCH ×2 (06:11→14:00)
[2022-01-06] MEDS: InsuLIN REG 1unit/0.01ml Soln (100units/ml) SC SCH ×3 (06:43→17:30)
[2022-01-06] MEDS: ACCU-CHEK COMFORT CURVE STRIP VI SCH ×3 (06:43→18:02)
[2022-01-06] MEDS: hydrALAZINE HCL 20 MG/ML VL IV PRN (09:52)
[2022-01-06] MEDS: BUMETANIDE 2.5mg/10ml (0.25 mg/ml) INJ IV SCH (09:53)
[2022-01-06] MEDS: METOPROLOL TARTRATE 25 MG TAB PO SCH (10:00)
[2022-01-06] MEDS: LEVOTHYROXINE SODIUM 25 MCG TAB PO SCH (10:00)
[2022-01-06] MEDS ORDERED: FOLIC ACID 1 MG in D5W 5% 50 ML INJ SCH ×4 (10:00)
[2022-01-06] MEDS: LEVOTHYROXINE SODIUM 112 MCG TAB PO SCH (10:00)
[2022-01-06 12:28] LABS: Hematocrit 24.7 % (36.0-46.0); Hemoglobin 8.1 g/dL (12.2-16.2); Mean Corpuscular Hemoglobin 30.1 pg (28.0-32.0); Mean Corpuscular Hgb Conc. 32.7 g/dL (32.0-36.0); Red Blood Cells 2.69 10^6/uL (4.0-5.20); Red Cell Distribution Width 19.3 % (11.8-14.3); White Blood Cell 2.1 10^3/uL (4.4-10.8)
[2022-01-06 12:31] LABS: Basophils % (manual) 0 (0.0-2.0); Blast Cells 0; Eosinophils % (manual) 0 (0-7); Myelocytes % 0; Promyelocytes % 0; Reactive Lymphocytes 0
[2022-01-06 12:32] LABS: Anion Gap 14 (5-15); Blood Urea Nitrogen 65 mg/dL (7-18); Calcium 8.2 mg/dL (8.5-10.1); Carbon Dioxide 24 mmol/L (21-32); Chloride 109 mmol/L (98-107); Glucose 116 mg/dL (74-106); Potassium 3.2 mmol/L (3.5-5.1); Sodium 147 mmol/L (136-145)
[2022-01-06 12:34] LABS: BUN/Creatinine Ratio 12.2; GFR African American 11 mL/min; GFR Non-African American 9 mL/min
[2022-01-06] MEDS ORDERED: POTASSIUM EFFERVESENT TAB 25 MEQ PO ONE (13:00)
[2022-01-06] MEDS: MORPHINE SULFATE INJ 2 MG/ml SYRG IV PRN (13:39)
[2022-01-06] MEDS ORDERED: methylPREDNISolone SOD SUCC 40 MG/ML VL IV SCH (14:00)
[2022-01-06] MEDS ORDERED: PHENYLEPHRINE IV 250 ML IV ONE (14:11)
[2022-01-06] MEDS ORDERED: PHENYLEPHRINE IV 250 ML IV SCH (14:30)
[2022-01-06] MEDS ORDERED: MIDAZOLAM DRIP 50 mg/50mL 50 ML IV SCH (14:45)
[2022-01-06 14:47] LABS: Band Neutrophils % (manual) 35; Lymphocytes % (manual) 31 (10.0-50.0); Metamyelocytes % 2; Monocytes % (manual) 14 (0-12)
[2022-01-06 14:48] LABS: Hematocrit 21.4 % (36.0-46.0); Mean Corpuscular Hemoglobin 32.3 pg (28.0-32.0); Mean Corpuscular Hgb Conc. 32.3 g/dL (32.0-36.0); Mean Corpuscular Volume 100.1 fL (80.0-100.0); Red Blood Cells 2.14 10^6/uL (4.0-5.20); White Blood Cell 3.9 10^3/uL (4.4-10.8)
[2022-01-06 14:52] LABS: INR 1.44 (0.9-1.15)
[2022-01-06 14:57] LABS: BUN/Creatinine Ratio 11.3; Calcium 10.5 mg/dL (8.5-10.1); Potassium 4.8 mmol/L (3.5-5.1)
[2022-01-06] MEDS ORDERED: EPINEPHrine HCL 1 MG/10 ML SYRG IV ONE (15:00)
[2022-01-06 15:06] LABS: Red Cell Distribution Width 20.2 % (11.8-14.3)
[2022-01-06 15:07] LABS: Hemoglobin 6.9 g/dL (12.2-16.2)
[2022-01-06 15:08] LABS: Basophils % (manual) 0 (0.0-2.0); Blast Cells 0; Eosinophils % (manual) 0 (0-7); Myelocytes % 0; Promyelocytes % 0; Reactive Lymphocytes 0
[2022-01-06 16:01] LABS: Band Neutrophils % (manual) 35; Lymphocytes % (manual) 31 (10.0-50.0); Metamyelocytes % 2; Monocytes % (manual) 14 (0-12)
[2022-01-06] MEDS ORDERED: fentaNYL Drip 2500mCg/250mlNS 250 ML IV SCH (16:15)
[2022-01-06] MEDS: CEFEPIME 1GM/ 50ML 50 ML IV SCH (20:00)
[2022-01-07] MEDS ORDERED: EPINEPHrine HCL 1 MG/10 ML SYRG IV ONE (00:29)
[2022-01-07] MEDS ORDERED: SODIUM BICARBONATE 8.4% INJ 50ML SYRINGE IV ONE (00:29)
[2022-01-07] MEDS ORDERED: CALCIUM CHLOR(10%) 100MG/ML 10ML SYRINGE IV ONE (00:29)
[2022-01-08 08:06] LABS: RPR Non Reactive (Non Reactive)
[2022-01-08 09:07] LABS: Free T4 (Free Thyroxine) 1.09 ng/dL (0.89-1.76)
[2022-01-08 09:08] LABS: T3 Total 0.33 ng/mL (0.60-1.81)
[2022-01-08 09:28] LABS: Folate (Folic Acid) 2.84 ng/mL (5.38-24)
== END 2022-01-07 00:30 | DRG 194 ==
LOC: ER 12:39 → TELE 20:35 → TELE-EAST 01-01 22:21 → TELE-CENTR 01-05 03:18 → ICU CENTRL 01-06 14:44 → DOU IN ICU 01-06 14:47
PROVIDERS: ADMIT Hospitalist; ATTEND Internal Medicine
PROC: 05HC33Z Insertion of Infusion Device into Left Basilic Vein, Percutaneous Approach (ICD-10-PCS; 2021-12-31)
PROC: B54NZZA Ultrasonography of Left Upper Extremity Veins, Guidance (ICD-10-PCS; 2021-12-31)
PROC: 30233N1 Transfusion of Nonautologous Red Blood Cells into Peripheral Vein, Percutaneous Approach (ICD-10-PCS; principal; 2022-01-01)
PROC: 5A1D70Z Performance of Urinary Filtration, Intermittent, Less than 6 Hours Per Day (ICD-10-PCS; 2022-01-02)
PROC: 5A1D70Z Performance of Urinary Filtration, Intermittent, Less than 6 Hours Per Day (ICD-10-PCS; 2022-01-04)
PROC: 5A1935Z Respiratory Ventilation, Less than 24 Consecutive Hours (ICD-10-PCS; 2022-01-06)
PROC: 0BH17EZ Insertion of Endotracheal Airway into Trachea, Via Natural or Artificial Opening (ICD-10-PCS; 2022-01-06)
PROC: 5A12012 Performance of Cardiac Output, Single, Manual (ICD-10-PCS; 2022-01-06)
DX: I13.2 Hypertensive heart and chronic kidney disease with heart failure and with stage 5 chronic kidney disease, or end stage renal disease (principal); G92.8 Other toxic encephalopathy; D61.818 Other pancytopenia; N17.9 Acute kidney failure, unspecified; E87.2 Acidosis; G93.1 Anoxic brain damage, not elsewhere classified; I21.A1 Myocardial infarction type 2; K76.6 Portal hypertension; N18.6 End stage renal disease; E88.09 Other disorders of plasma-protein metabolism, not elsewhere classified; I46.9 Cardiac arrest, cause unspecified; M32.9 Systemic lupus erythematosus, unspecified; Z20.822 Contact with and (suspected) exposure to COVID-19; I50.21 Acute systolic (congestive) heart failure; E11.22 Type 2 diabetes mellitus with diabetic chronic kidney disease; E66.9 Obesity, unspecified; E78.5 Hyperlipidemia, unspecified; K57.30 Diverticulosis of large intestine without perforation or abscess without bleeding; I16.0 Hypertensive urgency; E03.9 Hypothyroidism, unspecified; E53.8 Deficiency of other specified B group vitamins; E55.9 Vitamin D deficiency, unspecified; F17.200 Nicotine dependence, unspecified, uncomplicated; H57.02 Anisocoria; D64.9 Anemia, unspecified; F15.959 Other stimulant use, unspecified with stimulant-induced psychotic disorder, unspecified; K59.00 Constipation, unspecified; I77.6 Arteritis, unspecified; W18.39XA Other fall on same level, initial encounter; Y93.89 Activity, other specified; Y92.89 Other specified places as the place of occurrence of the external cause; Z88.5 Allergy status to narcotic agent; Z83.3 Family history of diabetes mellitus; Y99.8 Other external cause status; Z90.710 Acquired absence of both cervix and uterus; Z90.49 Acquired absence of other specified parts of digestive tract; Z80.3 Family history of malignant neoplasm of breast; Z68.25 Body mass index [BMI] 25.0-25.9, adult
CPT/HCPCS: 36415; 36600; 70450; 71045; 72170; 73501; 73502; 74176; 78582; 80048; 80053; 82140; 82306; 82607; 82746; 82805; 82962; 83010; 83516; 83605; 83615; 83970; 84100; 84439; 84443; 84480; 84484; 85007; 85025; 85027; 85045; 85379; 85384; 85610; 86160; 86225; 86235; 86592; 86803; 86850; 86880; 86900; 86901; 86920; 87045; 87070; 87077; 87081; 87205; 87340; 87427; 87493; 90935; 92950; 93005; 93306; 93970; 94002; 96365; G0378; J1642; J1815; J2250; J2405; J2543; J3480; J3490; J7060; P9047